=== PATIENT | male | born 1955 | race Caucasian/White ===

== ENCOUNTER 2022-06-18 08:26 | Inpatient (IN) | payer MEDICARE, SELFPAY ==
[2022-06-18] VITALS (56 sets, daily range): BP systolic 38–129; BP diastolic 27–89; PULSE 29–123; RESP 15–34; TEMP 36.2–37.4; O2SAT 78–100; BMI 24.3
--- NOTE | ~2022-06-18 | CT_ITS ---
EXAMINATION: CT abdomen pelvis wo con DATE: 06/19/2022 08:57 INDICATION: Hematuria. Acute kidney injury. TECHNIQUE: Computed tomography (CT) of the abdomen and pelvis was performed without intravenous contr ast. Automated exposure control and iterative reconstruction technique were employed. The dose-length product was 515.44 mGy-cm. COMPARISON: Kidney ultrasound 06/18/2022 FINDINGS: The visualized portions of the lung bases demonstrate mild atelectasis. No pleural effusion . The heart size is normal. There are coronary artery calcifications. No pericardial effusion. There is diffuse hepatic steatosis. The gallbladder, spleen, pancreas, adrenal glands, and kidneys are norm al. There is no urolithiasis. There is urothelial thickening in the renal pelvises bilaterally. There is mild distal bilateral hydroureter. The bladder is decompressed by a Wilhelm catheter. There is diff use bladder wall thickening, consistent with cystitis. There is liquid stool in the colon suggestive of diarrhea. There are no dilated loops of bowel. The appendix is not visualized. There is an umbilic al hernia containing fat. There are no pathologically enlarged lymph nodes. There is no free intraper itoneal fluid. There is a right groin central venous catheter with tip in right common iliac vein. Th ere is a 7 mm sclerotic lesion in right ischium, likely a benign bone island. IMPRESSION: 1. Cystitis and bilateral pyelitis. 2. Mild bilateral distal hydroureter. Reviewed, dictated and finalized at location A. T OF WAY MANAGER
--- NOTE | ~2022-06-18 | US_ITS ---
EXAMINATION: US renal BI DATE: 06/18/2022 16:01 INDICATION: Acute kidney injury TECHNIQUE: Multiple grayscale and Doppler ultrasound images of the kidneys were obtained. COMPARISON: None. FINDINGS: The right kidney measures 11 x 5.3 x 4.9 cm. The left kidney measures 12 x 4.1 x 5.2 cm. Th e kidneys demonstrate normal parenchymal echogenicity. There is mild to moderate hydroureteronephrosi s on the right. The bladder is decompressed by Wilhelm catheter. IMPRESSION: 1. Mild to moderate right hydroureteronephrosis. Reviewed, dictated and finalized at location F. CTOR OF MANAGED SERVICES
--- NOTE | ~2022-06-18 | XR_ITS ---
XR chest 1V portable DATE: 06/18/2022 10:47 INDICATION: Syncope. Weakness. TECHNIQUE: 2 portable semiupright AP views on 06/18/2022 at 1038 hours COMPARISON: None FINDINGS: Normal heart size. No hilar or mediastinal enlargement. No pulmonary infiltrate or consolid ation, pleural effusion or pulmonary vascular congestion or pneumothorax. Diffuse idiopathic skeletal hyperostosis of the thoracic spine. IMPRESSION: No active cardiopulmonary disease Diffuse idiopathic skeletal hyperostosis of the thoracic spine Reviewed, dictated and finalized at location B. MAKER
--- NOTE | 2022-06-18 08:33 | ECG_ITS ---
Measurements Intervals [place] Rate: 107 P: 32 MA: 119 QRS: 57 QRSD: 78 T: 53 QT: 300 QTc: 401 Interpretive Statements SINUS TACHYCARDIA WITH SHORT MA INTERVAL ABNORMAL ECG NO PREVIOUS ECG AVAILABLE FOR COMPARISON Electronically Signed On 06-18-2022 9:13:19 WELL REACTIVATOR OPERATOR by Ted Schaffer D.O.
[2022-06-18 09:00] LABS: Basophils Absolute Auto 0.1 K/mm3 (0.0-0.1); Basophils Percent Auto 0.5 % (0.2-1.2); Eosinophils Percent Auto 0.2 % (0-4.4); Hematocrit 33.9 % (42.0-52.0); Hemoglobin 11.1 g/dL (14.0-18.0); Immature Granulocyte Absolute 0.08 K/mm3 (0.00-0.031); Immature Granulocyte Percent A 0.5 % (0-0.5); Lymphocytes Absolute Auto 1.83 K/mm3 (0.9-3.2); Lymphocytes Percent Auto 11.4 % (18.3-44.2); Mean Corpuscular HGB Conc 32.7 g/dl (32-36); Mean Corpuscular Hemoglobin 33.5 pg (26-34); Mean Corpuscular Volume 102.4 fl (80-100); Mean Platelet Volume 9.1 fl (7.4-10.4); Monocytes Absolute Auto 1.9 K/mm3 (0.1-0.6); Monocytes Percent Auto 11.9 % (2.6-8.5); Neutrophils Absolute Auto 12.1 K/mm3 (1.3-6.7); Neutrophils Percent Auto 75.5 % (45.5-73.1); Platelet Count Result 404 k/mm3 (150-375); Red Blood Count 3.31 M/mm3 (4.6-6.20); Red Cell Distribution Width 13.2 % (11.5-14.5)
--- NOTE | 2022-06-18 09:12 | ED.GENADULT ---
HPI - General Adult General Chief complaint: Weakness Stated complaint: weaknes, fall, syncope, hematuria Time Seen by Provider: 06/18/22 09:11 Source: patient and family Mode of arrival: ambulatory Limitations: no limitations History of Present Illness HPI narrative: 67 years old white male came to the emergency room from home with his sister who drove him complaining of passing out for the last 2 days. Mainly when he gets up and try to walk. He denies any fever, chills, nausea, vomiting, chest pain, shortness of breath, back pain or injury. History of hypertension, hyperlipidemia, does not smoke, drink occasionally, DNR. Patient reported having similar symptoms 5 to 6 months ago, resolved without seeing a doctor at that time. Last blood work-up was over 1 year ago, patient reports massive diarrhea all night long Related Data Allergies Allergy/AdvReac Type Severity Reaction Status Date / Time No Known Allergies Allergy Verified 06/18/22 10:48 Review of Systems Review of Systems: All systems reviewed & are unremarkable except as noted in HPI and below Course Reevaluation(s) Reevaluation #1: Straight catheter, urine output is around 1300 cc, bloody urine. Date: 06/18/22 Time: 12:25 Consultations Consultation #1: DR PUCKETT Date: 06/18/22 Time: 12:21 Consultation #2: DR RAYMUNDO Date: 06/18/22 Time: 12:22 Consultation #3: DR VALERO Date: 06/18/22 Time: 12:22 Vital Signs Vital signs: Vital Signs Temperature 36.2 C L 06/18/22 08:47 Pulse Rate 29 L 06/18/22 08:47 Respiratory Rate 23 H 06/18/22 08:47 Blood Pressure 115/70 06/18/22 08:47 Pulse Oximetry 100 06/18/22 08:47 Oxygen Delivery Nasal Cannula 06/18/22 08:47 Oxygen Flow Rate 4 06/18/22 08:47 Temperature 36.2 C L 06/18/22 08:47 Pulse Rate 29 L 06/18/22 08:47 Respiratory Rate 23 H 06/18/22 08:47 Blood Pressure 115/70 06/18/22 08:47 Pulse Oximetry 100 06/18/22 08:47 Oxygen Delivery Nasal Cannula 06/18/22 08:47 Oxygen Flow Rate 4 06/18/22 08:47 Procedures Central Line Placement Right Femoral: Central Line Date: 06/18/22 Central Line Time: 12:23 Discussed w/ the patient/family/POA,the placement of a central venous catheter, including its clinical necessity/indication & associated potential risks, benifits and alternatives.: Yes The patient/family/POA understand(s) and acknowledge(s) the need to proceed with central venous catheter insertion as an important element of the patient's clinical management.: Yes Time Out Performed: Yes (15) Max. Sterile Barrier Technique: Caps, large sterile sheet and hand hygiene Central Line Prep: 2% chlorhexidine scrub and sterile drapes applied Technique: sterile prep/drape Ultrasound Used for Placement: No Central Line Lumen Inserted: triple Post Procedure: sutured in place, good blood return and all ports aspirated, flushed, capped Patient Tolerated Procedure: well Complications: none Medical Decision Making Vital Signs Vital Signs: Vital Signs Temperature 36.2 C L 06/18/22 08:47 Pulse Rate 29 L 06/18/22 08:47 Respiratory Rate 23 H 06/18/22 08:47 Blood Pressure 115/70 06/18/22 08:47 Pulse Oximetry 100 06/18/22 08:47 Oxygen Delivery Nasal Cannula 06/18/22 08:47 Oxygen Flow Rate 4 06/18/22 08:47 Temperature 36.2 C L 06/18/22 08:47 Pulse Rate 29 L 06/18/22 08:47 Respiratory Rate 23 H 06/18/22 08:47 Blood Pressure 115/70 06/18/22 08:47 Pulse Oximetry 100 06/18/22 08:47 Oxygen Delivery Nasal Cannula 06/18/22 08:47 Oxygen Flow Rate 4 06/18/22 08:47 Lab Data Result diagrams: 06/18/22 08:49 06/18/22 08:49 Labs: Lab Results 06/18/22 06/18/22 Range/Units 08:49 08:49 WBC 16.0 H (4.5-10.0) K/mm3 RBC 3.31 L (4.6-6.20) M/mm3 Hgb 11.1 L (14.0-18.0) g/dL Hct 33.9 L (42.0-52.0) % MCV 102.4 H (80-100) fl
[2022-06-18 09:25] LABS: Albumin Level 4.3 g/dL (3.5-5.1); Alkaline Phosphatase 78 U/L (38-126); Anion Gap 26 mmol/L (8-16); Aspartate Amino Transferase 48 U/L (17-59); Bilirubin,Total 0.6 mg/dL (0.2-1.3); Blood Urea Nitrogen 107 mg/dL (9-20); Calcium 9.6 mg/dL (8.4-10.2); Carbon Dioxide 13 mmol/L (22-30); Chloride 92 mmol/L (98-107); Estimated Glomerular Filt Rate 8; Glucose 205 mg/dL (65-110); Potassium 4.9 mmol/L (3.4-5.0); Sodium 131 mmol/L (137-145)
[2022-06-18 09:29] LABS: Alanine Aminotransferase 33 U/L (6-50)
--- NOTE | 2022-06-18 09:46 | PCRCNOTE ---
UNABLE TO OBTAIN ABG, DR. SUTTON ALSO ATTEMPTED. ABG CANCELLED PER DR. SUTTON.
--- NOTE | 2022-06-18 09:53 | PC.NURSE ---
PT infusing/hydrating. JULIANAI Lab collecting blood cultures.
[2022-06-18] MEDS: SODIUM CHLORIDE 0.9% IV 1,000 ML 999 ML (10:49)
[2022-06-18] MEDS: LACTATED RINGERS 2,200 ML/1,000 ML BAG 999 ML IV CONT (10:52)
[2022-06-18 11:57] LABS: Bacteria Urine 4+ /hpf; Mucus Urine Heavy /lpf; RBC Urine >75 /hpf (0-2); WBC Clumps Urine Present /HPF; WBC Urine >75 /hpf
[2022-06-18 11:59] LABS: Appearance Urine Turbid (Clear); Color Urine Dark Brown (Yellow)
[2022-06-18 12:00] LABS: Add Urine Microscopic? YES
[2022-06-18 12:21] LABS: Influenza A QL RT-PCR Negative (Negative); Influenza B QL RT-PCR Negative (Negative); SARS-CoV-2 RNA PCR Negative
[2022-06-18] MEDS: NOREPINEPHRINE 8 MG/D5W 250 ML 8 MG/250 ML BAG 9.38 MG IV CONT ×2 (12:46→15:00)
[2022-06-18] MEDS: SODIUM CHLORIDE 0.9% IV 1,000 ML 150 ML IV CONT (12:47)
[2022-06-18 13:22] LABS: INR 1.2; Prothrombin Time 14.8 Seconds (11.1-14.7)
[2022-06-18 13:23] LABS: Partial Thromboplastin Time 24.8 SECONDS (22.3-36.8)
[2022-06-18 13:25] LABS: Lactic Acid Reflex 1.2 mmol/L (0.7-2.0)
[2022-06-18 13:27] LABS: CRP 4.4 mg/dL (<1.0)
--- NOTE | 2022-06-18 14:04 | PM.IMHP ---
H&P: HPI History of Present Illness Date/Time: 06/18/22 14:04 Chief Complaint: Weakness Narrative: This is a 67-year-old male patient who came to the hospital who was driven to the emergency room from home. His sister has accompanied him. The patient was complaining of passing out over the last 2 days. The patient has the majority of the symptoms when he tried to get up and walk. He denies any fever chills or any nausea vomiting chest pain or shortness of breath. The patient stated that he is not taking any medication has a history of hypertension and hyperlipidemia and is no longer taking his medications. The patient stated he had similar symptoms 5-6 months ago. He has not seen a doctor for this and the symptoms resolved on lower at this time. The patient had massive diarrhea all night long. His white count is noted to be 16.0. H&H is 11.1 and 33.9. Sodium is noted to be 131. Bicarb is 13 anion gap 26. Creatinine 7.0 GFR is 8. Glucose is 205. Lactic is only 1.2. Total creatinine kinase is 496. C reactive protein is 4.4. His urine is bright red. Stool for occult blood is positive. The patient is negative for C diff he is negative for influenza A/B and COVID. Renal ultrasound was read as mild to moderate right hydroureteronephrosis. The patient was given 2 L of normal saline and 1 L of lactic Ringer's. Patient's blood pressure remained low even with the IV fluids. A central line was started in the emergency room and the patient was started on Levophed. The senior technical trainer was notified and agreed to accept the patient into ICU and will be the consult. Nephrology has been consulted. The patient was started on Rocephin in the emergency room and Levaquin. He had also been given a dose of Zosyn. The patient was started on vancomycin. The patient was also started on a bicarb drip. The patient is being admitted to inpatient ICU on the date of service of 06/18/2022. Review of Systems Review of Systems: See HPI All systems reviewed & are unremarkable except as noted in HPI and below Constitutional: Constitutional: Reports as per HPI and Reports no additional constitutional complaints Eyes: Eyes: Reports as per HPI and Reports no additional eye complaints ENT: Reports system reviewed and no additional complaints, except as documented and Reports Normal hearing present Cardiovascular: Cardiovascular: Reports no additional cardiovascular complaints Respiratory: Respiratory: Reports no additional respiratory complaints and Reports no additional respiratory complaints Gastrointestinal: Gastrointestinal: Reports as per HPI and Reports no additional gastrointestinal complaints Musculoskeletal: Musculoskeletal: Reports no additional musculoskeletal complaints Integumentary/Breasts: Skin/Breast: Reports system reviewed and no additional complaints, except as docu and Reports as per HPI Neurologic: Reports system reviewed and no additional complaints, except as documented, Reports as per HPI and Reports Normal hearing present Psychiatric: Psychiatric: Reports no additional psychiatric complaints and Reports as per HPI Endocrine: Endocrine: Reports no additional endocrine complaints Hematologic/Lymphatic: Hematologic/Lymphatic: Reports no additional hematologic/lymphatic complaints Allergic/Immunologic: Allergic/Immunologic: Reports no additional allergic/immunologic complaints PMFSH Past Medical History Medical History Glaucoma Hyperlipidemia Hypertension Surgical History Surgical History S/P appendectomy Family History Family History Mother Cancer Father Cerebrovascular accident Dementia Social History Social History (Updated 06/18/22 @ 17:06 by Lilly Yoder NP) Social History: He lives alone and has 2 children. He is . His sister is the
--- NOTE | 2022-06-18 14:26 | ADMGEN ---
This patient, Wale Quinn, was admitted to Intensive Care Unit-9. Patient/family oriented to hospital policies and general routines including ID bracelet, bed and alarms, visiting hours, pain management, procedures, bathroom and other care routines, personal items, smoking policy, room service/diet, and visiting hours. Information on how to activate the Rapid Response Team has been discussed. Patient/Family are encouraged to report perceived risks to care and to ask questions if they do not understand what they are told or what they should do.
--- NOTE | 2022-06-18 14:31 | WPDCNINT ---
Assessment and Plan Assessment and plan (1) Shock: Code(s): R57.9 - Shock, unspecified Status: Acute Assessment and Plan: Patient presented with hypotension, falls, syncope, severe diarrhea with 12-14 episodes overnight with watery diarrhea -in the ED patient's systolic blood pressures were in the 50s, he was given 5 L IV fluid bolus -likely septic shock versus hypovolemic shock, likely related to UTI, severe diarrhea -central line was placed in the right femoral vein on 06/18/2022 -patient started on Levophed, will maintain MAP > 65 mm Hg or SBP > 100 mmHg. -patient was started on Zosyn, vancomycin Levaquin, -will stop Zosyn, added Flagyl and ceftriaxone, continue Levaquin for now -stool C diff is pending -stool ova parasite has been ordered -will order stool culture (2) Acute kidney injury: Code(s): N17.9 - Acute kidney failure, unspecified Status: Acute Assessment and Plan: Patient with acute kidney injury, creatinine of 7.0 BUN of 107 -likely related to severe diarrhea, hypovolemia -patient with metabolic acidosis -received adequate IV fluids -lactic acid was 1.2, this was probably drawn after patient was given IV fluids -hematuria in the Wilhelm catheter -will start patient on bicarb infusion -renal ultrasound has been ordered -will check urine lytes, CK level, urine eosinophil -continue to monitor urine output, renal function electrolytes -maintain adequate end organ perfusion with Levophed (3) Diarrhea: Code(s): R19.7 - Diarrhea, unspecified Status: Acute Assessment and Plan: Diarrhea has resolved according the patient -stool for C diff is pending -stool for ova and parasites have been ordered -stool culture was ordered (4) Urinary tract infection: Code(s): N39.0 - Urinary tract infection, site not specified Status: Acute Assessment and Plan: UA revealed UTI, continue antibiotics as above (5) Glaucoma: Code(s): H40.9 - Unspecified glaucoma Status: Acute Assessment and Plan: History of glaucoma Plan DVT prophylaxis: SCDs as patient has hematuria, will hold any DVT chemoprophylaxis Stress ulcer prophylaxis: Not applicable Nutrition: Full liquid diet Code Status: DNR Critical Care Time Spent: 45 minutes Due to a high probability of clinically significant, life threatening deterioration, the patient required my highest level of preparedness to intervene emergently and I personally spent this critical care time directly and personally managing the patient. This critical care time included obtaining a history; examining the patient; pulse oximetry; ordering and review of studies; arranging urgent treatment with development of a management plan; evaluation of patient's response to treatment; frequent reassessment; and discussions with other providers. It was exclusive of separately billable procedures and treating other patients and teaching time. Please see Assessment and Plan section and the rest of the note for further information on patient assessment and treatment Materials Handler Consult Note Consult date: 06/18/22 Reason for consult: Hypovolemic shock, diarrhea, acute kidney injury HPI: Wale Quinn is a 67 year old male with past medical history of hypertension, hyperlipidemia on no medications at home at this time presented the ED on 06/18/2022 with complains of weakness, falls, syncope, hematuria, severe diarrhea. Patient states he has been having diarrhea on and off but overnight he had 12-14 episodes with watery diarrhea. He has had these episodes in the past but they resolve in 1 day. He has been having multiple falls in the last 2-3 days but has not hit his head, he fell and had his knee and elbow. Patient has quit smoking long time ago, drinks occasionally, denies any illicit drug use. In the ED patient was found to be hypotensive upon arrival with systolics in the 50s, patient was given a total of 5 L IV fluid bolu
[2022-06-18] MEDS: levoFLOXacin 500 MG/D5W 100 ML 500 MG/100 ML BAG 66.67 MG IVPB (14:47)
[2022-06-18 15:05] LABS: IFOB Positive Control Positive; Immunochemical Fecal Occult Bl Positive (N)
[2022-06-18] MEDS: SODIUM BICARBONATE 8.4% 50 MEQ/50 ML SYRINGE 100 MEQ IV PUSH (15:05)
[2022-06-18 15:13] LABS: Creatine Kinase 496 U/L (55-170)
[2022-06-18 15:23] LABS: Bacteria Urine 1+ /hpf; RBC Urine >75 /hpf (0-2); Squamous Epithelial Cell Urine Few /hpf (Few); WBC Urine >75 /hpf (0-3)
[2022-06-18 15:26] LABS: Add Urine Microscopic? YES; Appearance Urine Cloudy (Clear); Bilirubin Urine 1+ (Negative); Blood Urine 3+ (Negative); Color Urine Red (Yellow); Glucose Urine UA Trace mg/dL (Negative); Ketones Urine Trace mg/dL (Negative); Leukocyte Esterase Ur 3+ LEU/UL (NEGATIVE); Nitrate Urine Negative (Negative); Protein Urine 3+ mg/dL (Negative); Specific Grav Ur 1.015 (1.001-1.035); Urobilinogen Urine 0.2 mg/dL (<2.0); pH Urine 5.5 (5.0-9.0)
[2022-06-18 15:30] LABS: Toxigenic C. Diff NEGATIVE (NEGATIVE)
[2022-06-18 15:34] LABS: Eosinophil Urine None Seen % (None Seen)
[2022-06-18 15:48] LABS: Creatinine Urine 53.4 mg/dL; Potassium Urine Random 25.8 meq/L; Sodium Urine Random 76 meq/L
[2022-06-18] MEDS: SODIUM BICARBONATE 8.4% 150 MEQ in WATER, STERILE FOR INJECTION 950 ML 100 MEQ IV CONT (15:57)
[2022-06-18] MEDS: metroNIDAZOLE 500 MG/ISO 100ML 500 MG/100 ML BAG 100 MG IVPB ×2 (16:03→21:49)
[2022-06-18 18:32] LABS: Hematocrit 26.7 % (42.0-52.0); Hemoglobin 9.1 g/dL (14.0-18.0)
[2022-06-18 18:42] LABS: Creatine Kinase 434 U/L (55-170)
[2022-06-18 19:23] LABS: HIV 1/2 Ab P24 Ag Result Negative (Negative)
[2022-06-18 19:38] LABS: Hepatitis B Surface Antigen Negative (Negative)
[2022-06-18 19:43] LABS: Hepatitis B Core IgM Result Negative (Negative)
[2022-06-18 19:56] LABS: Hepatitis B Surface Anti Res Negative; Hepatitis C Virus Antibody Negative (Negative)
[2022-06-18 21:09] LABS: Alanine Aminotransferase 18 U/L (6-50); Albumin Level 3.1 g/dL (3.5-5.1); Alkaline Phosphatase 61 U/L (38-126); Anion Gap 12 mmol/L (8-16); Aspartate Amino Transferase 45 U/L (17-59); Bilirubin,Total 0.6 mg/dL (0.2-1.3); Blood Urea Nitrogen 78 mg/dL (9-20); Calcium 7.8 mg/dL (8.4-10.2); Carbon Dioxide 21 mmol/L (22-30); Chloride 98 mmol/L (98-107); Estimated CRCL calculation 19 ml/min; Estimated Glomerular Filt Rate 19; Glucose 131 mg/dL (65-110); Potassium 3.5 mmol/L (3.4-5.0); Sodium 131 mmol/L (137-145)
[2022-06-18] MEDS: CENTRAL LINE FLUSH 10 ML IV PUSH (21:50)
[2022-06-19] VITALS (21 sets, daily range): BP systolic 91–109; BP diastolic 59–81; PULSE 75–115; RESP 17–26; TEMP 36.6–37.4; O2SAT 93–100
[2022-06-19] MEDS: NOREPINEPHRINE 8 MG/D5W 250 ML 8 MG/250 ML BAG 31.88 MG IV CONT (00:31)
[2022-06-19] MEDS: SODIUM BICARBONATE 8.4% 150 MEQ in WATER, STERILE FOR INJECTION 950 ML 100 MEQ IV CONT (04:51)
[2022-06-19 05:38] LABS: Basophils Absolute Auto 0.1 K/mm3 (0.0-0.1); Basophils Percent Auto 0.7 % (0.2-1.2); Eosinophils Absolute Auto 0.1 K/mm3 (0-0.3); Eosinophils Percent Auto 1.1 % (0-4.4); Hemoglobin 9.4 g/dL (14.0-18.0); Immature Granulocyte Absolute 0.07 K/mm3 (0.00-0.031); Immature Granulocyte Percent A 0.6 % (0-0.5); Lymphocytes Absolute Auto 1.47 K/mm3 (0.9-3.2); Lymphocytes Percent Auto 12.1 % (18.3-44.2); Mean Corpuscular HGB Conc 33.6 g/dl (32-36); Mean Corpuscular Hemoglobin 34.1 pg (26-34); Mean Corpuscular Volume 101.4 fl (80-100); Mean Platelet Volume 8.9 fl (7.4-10.4); Monocytes Absolute Auto 1.4 K/mm3 (0.1-0.6); Monocytes Percent Auto 11.2 % (2.6-8.5); Neutrophils Percent Auto 74.3 % (45.5-73.1); Platelet Count Result 313 k/mm3 (150-375); Red Blood Count 2.76 M/mm3 (4.6-6.20); Red Cell Distribution Width 13.2 % (11.5-14.5); White Blood Count 12.1 K/mm3 (4.5-10.0)
[2022-06-19] MEDS: CENTRAL LINE FLUSH 10 ML IV PUSH ×3 (05:56→21:16)
[2022-06-19] MEDS: metroNIDAZOLE 500 MG/ISO 100ML 500 MG/100 ML BAG 100 MG IVPB ×3 (05:56→21:31)
[2022-06-19 06:13] LABS: Lactic Acid Reflex 0.9 mmol/L (0.7-2.0)
[2022-06-19] MEDS: NOREPINEPHRINE 8 MG/D5W 250 ML 8 MG/250 ML BAG 26.25 MG IV CONT ×2 (07:49→17:30)
[2022-06-19 08:14] LABS: Alanine Aminotransferase 17 U/L (6-50); Albumin Level 3.2 g/dL (3.5-5.1); Alkaline Phosphatase 80 U/L (38-126); Anion Gap 12 mmol/L (8-16); Aspartate Amino Transferase 33 U/L (17-59); Bilirubin,Total 0.6 mg/dL (0.2-1.3); Blood Urea Nitrogen 60 mg/dL (9-20); CRP 13.9 mg/dL (<1.0); Carbon Dioxide 26 mmol/L (22-30); Chloride 96 mmol/L (98-107); Creatine Kinase 246 U/L (55-170); Estimated CRCL calculation 26 ml/min; Estimated Glomerular Filt Rate 27; Glucose 143 mg/dL (65-110); Magnesium 2.1 mg/dL (1.6-2.3); Phosphorus 3.5 mg/dL (2.5-4.5); Potassium 3.2 mmol/L (3.4-5.0); Sodium 134 mmol/L (137-145)
--- NOTE | 2022-06-19 09:55 | WPDINTPN ---
Progress Note: A&P Assessment and Plan (1) Shock: Code(s): R57.9 - Shock, unspecified Status: Acute Assessment and Plan: Patient presented with hypotension, falls, syncope, severe diarrhea with 12-14 episodes overnight with watery diarrhea -in the ED patient's systolic blood pressures were in the 50s, he was given 5 L IV fluid bolus -likely septic shock versus hypovolemic shock, likely related to UTI, severe diarrhea -central line was placed in the right femoral vein on 06/18/2022 -patient started on Levophed, will maintain MAP > 65 mm Hg or SBP > 100 mmHg. -continue ceftriaxone, vancomycin and Flagyl (06/18), -will discontinue vancomycin once blood cultures are resulted -stool C diff is negative -stool ova parasite has been ordered and pending -stool culture ordered and pending (2) Acute kidney injury: Code(s): N17.9 - Acute kidney failure, unspecified Status: Acute Assessment and Plan: Patient with acute kidney injury, creatinine of 7.0 BUN of 107 -likely related to severe diarrhea, hypovolemia -patient with metabolic acidosis -received adequate IV fluids -lactic acid 0.9 this morning, -hematuria in the Wilhelm catheter -will discontinue bicarb infusion and start LR -06/18/2022: Renal ultrasound showed [id number] right hydronephrosis -urine lytes did not show prerenal picture, CK level mildly elevated, urine eosinophils are negative -continue to monitor urine output, renal function electrolytes -maintain adequate end organ perfusion with Levophed (3) Diarrhea: Code(s): R19.7 - Diarrhea, unspecified Status: Acute Assessment and Plan: Continue to have diarrhea yesterday, overnight it has slowed down -stool for C diff negative -stool for ova and parasites have been ordered -stool culture was ordered (4) Urinary tract infection: Code(s): N39.0 - Urinary tract infection, site not specified Status: Acute Assessment and Plan: UA revealed UTI, continue antibiotics as above (5) Glaucoma: Code(s): H40.9 - Unspecified glaucoma Status: Acute Assessment and Plan: History of glaucoma (6) Hydronephrosis, right: Code(s): N13.30 - Unspecified hydronephrosis Status: Acute Assessment and Plan: Patient presented with hematuria, Renal ultrasound showed right mild hydronephrosis -appreciate urology evaluation, recommended CT scan of the abdomen -CT scan of the abdomen pelvis showed Cystitis and bilateral pyelitis.2. Mild bilateral distal hydroureter -no plan for intervention today Plan DVT prophylaxis: SCDs as patient has hematuria, will hold any DVT chemoprophylaxis Stress ulcer prophylaxis: Not applicable Nutrition: Full liquid diet Discussed with Urology Code Status: DNR Critical Care Time Spent: 38 minutes Due to a high probability of clinically significant, life threatening deterioration, the patient required my highest level of preparedness to intervene emergently and I personally spent this critical care time directly and personally managing the patient. This critical care time included obtaining a history; examining the patient; pulse oximetry; ordering and review of studies; arranging urgent treatment with development of a management plan; evaluation of patient's response to treatment; frequent reassessment; and discussions with other providers. It was exclusive of separately billable procedures and treating other patients and teaching time. Please see Assessment and Plan section and the rest of the note for further information on patient assessment and treatment Subjective Date/time seen: 06/19/22 09:55 Interval history: Reason for consult: Septic/hypovolemic shock, severe diarrhea, acute kidney injury, UTI 06/19/2022: Patient seen and examined in the ICU, is awake, alert, oriented x3. In no acute distress. Patient states he feels much better, yesterday in the afternoon he had 5-6 episodes of stefania
--- NOTE | 2022-06-19 10:04 | WPDURCON ---
Assessment and Plan Assessment and plan (1) Acute kidney injury: Code(s): N17.9 - Acute kidney failure, unspecified Status: Acute (2) Urinary tract infection: Code(s): N39.0 - Urinary tract infection, site not specified Status: Acute (3) Hydronephrosis, right: Code(s): N13.30 - Unspecified hydronephrosis Status: Acute Assessment and Plan: Right hydronephrosis identified on renal u/s had improved on f/u CT-abd/pelvis this morning. Clinical picture, urologically, c/w ascending right pyelonephritis -> inflammation of bladder and right ureteral grace likely explains the hydronephrosis. Hematinuria also likely d/t hemorrhagic cystitis. Given improved overall clinical picture (improving creat., serum WBC, etc) will not plan ureteral stent placement. Continue Levaquin pending culture results. Formal hematuria evaluation in future only if blood and/or hydronephrosis persist after treatment of probable infection. Urology Consult Note HPI Date Seen: 06/19/22 Requesting Physician: Michael Florence MD Primary Care Provider: PHYSICIAN NOT ON STAFF Consult Narrative Narrative: Wale Quinn is a 67 year old male, previously known known to our practice and without prior significant urological history, admitted to the ICU with episodes of syncope, hypotension following protracted course of severe diarrhea with subsequent dehydration. During initial evaluation was also found to have acute kidney injury with a serum creatinine of 7. Initial evaluation with a renal ultrasound showed right hydronephrosis uncertain etiology. Patient serum blood cell count creatinine have improved with supportive care. Patient denies a history of significant voiding difficulty, recurrent urinary tract infection or urolithiasis. He denies flank pain. Review of Systems Cardiovascular: Cardiovascular: Denies chest pain, Denies lightheadedness, Denies palpitations and Denies dyspnea Respiratory: Respiratory: Denies dyspnea Gastrointestinal: Gastrointestinal: Denies diarrhea, Denies nausea and Denies vomiting Genitourinary: Genitourinary: Denies hematuria and Denies dysuria Endocrine: Endocrine: Denies palpitations PMFSH Past Medical History Medical History Glaucoma Hyperlipidemia Hypertension Surgical History Surgical History S/P appendectomy Family History Family History Mother Cancer Father Cerebrovascular accident Dementia Social History Social History (Updated 06/18/22 @ 17:06 by Lilly Yoder NP) Social History: He lives alone and has 2 children. He is . His sister is the durable power attorney law clerk for healthcare. The patient is retired from [email or web address]. He is a former smoker. He denies any alcohol marijuana or illicit drugs. Code status DNR Smoking status: Former smoker Alcohol intake: never Substance use: former Lack of Transportation: No Lack of Food: Never True Current Housing: Decline to Answer Concerned About Future Housing: Decline to Answer Difficulty Paying Gas/Electric Bills: Decline to Answer Difficulty Paying for Meds: Decline to Answer Currently Unemployed: Decline to Answer Education: High School Diploma/GED Difficulty w/ Childcare or Family Care: Decline to Answer Spiritual care concerns: No Meds Home Medications and Allergies Home Medications Medication Instructions Recorded Confirmed Type No Home Medications 06/18/22 06/18/22 History Allergies Allergy/AdvReac Type Severity Reaction Status Date / Time No Known Allergies Allergy Verified 06/18/22 10:48 Vital Signs Vital Signs - 24 hr 06/18/22 12:45 06/18/22 12:46 06/18/22 10:15 Temperature Pulse Rate 120 H 120 H 109 H Respiratory Rate 20 24 H Blood Pressure 86/71 L
[2022-06-19] MEDS: LACTATED RINGERS 1,000 ML 100 ML IV CONT ×2 (11:01→21:13)
[2022-06-19] MEDS: cefTRIAXone 2 GM in SODIUM CHLORIDE 0.9% IV 100 ML 200 ML IVPB (11:02)
[2022-06-19 11:32] LABS: Hematocrit 26.6 % (42.0-52.0); Hemoglobin 9.1 g/dL (14.0-18.0)
--- NOTE | 2022-06-19 12:27 | PM.CNNEP ---
Assessment and Plan Assessment and plan (1) Acute kidney injury: Code(s): N17.9 - Acute kidney failure, unspecified Status: Acute Assessment and Plan: suspect secondary to severe volume depletion/hypovolemia from diarrhea however, cannot discount acute infection complicated by metabolic acidosis as well initially fluid responsive but now on pressor therapy significant improvement in renal function with current interventions evaluation to date: renal ultrasound with mild/moderate right hydroureteronephrosis CT of Abd/Pelvis with cystitis, bilateral pyelitis and mild bilateral distal hydroureter urine electrolytes nonprerenal urine eosinophils negative CK mildly elevated (but not enough to affect kidney function) continue fluids/pressors to maintain MAP follow repeat labs and UOP . 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 diff, ova + parasites, culture) are pending on empiric antibiotics (4) Urinary tract infection: Code(s): N39.0 - Urinary tract infection, site not specified Status: Acute Assessment and Plan: admission UA highly suggestive await urine culture on antibiotics (5) Hydronephrosis, right: Code(s): N13.30 - Unspecified hydronephrosis Status: Acute Assessment and Plan: Urology consult/recommendations noted on intervention planned at this time Will continue to follow. History of Present Illness Reason for Consult Consult date: 06/19/22 Reason for consult: acute renal failure Chief Complaint Chief complaint: DIARRHEA,HYPOTENSION,DENNIS History of Present Illness Narrative: The patient is a 67-year-old male with a past medical history as outlined below who presented to [facility] Emergency room yesterday with complaints of weakness, recurrent falls, syncope, hematuria, and diarrhea. The patient reports that he has been having diarrhea on and off for last 24 hours with up to 12-14 episodes of diarrhea. He describes the diarrhea as watery in nature with no evidence of blood or mucus. Usually, he has had episodes like this in the past but they usually resolve in about 24 hours. This episode apparently has progressed further that time frame. Associated symptoms include several falls in the last 2-3 days although he denies any injury. Due to these ongoing symptoms as mentioned, he presented to the ER for further assessment. Workup and evaluation emergency room demonstrated the patient to be quite hypotensive with systolic BP is in the 50s. He was again given aggressive IV fluid resuscitation for a total of 5 L which did improve his systolic blood pressure to the 80s. He subsequently had a central line placed and was started on vasopressor therapy for optimization of his hemodynamics. Routine blood test demonstrated a CBC with a white blood cell count of 16 relative anemia and stable platelet count. His chemistry showed severe acute kidney injury/ acute renal failure with a BUN of 107 and a creatinine of 7.0 but surprisingly with no critical electrolyte abnormalities with regard to his potassium or Calcium but he did have a significant metabolic acidosis with a CO2 of 13. His urinalysis was highly suggestive of a urinary tract infection but his COVID/influenza a/influenza B testing were negative. His chest x-ray did no
--- NOTE | 2022-06-19 12:27 | P.CONNP_ITS ---
Assessment and Plan Assessment and plan (1) Acute kidney injury: Code(s): N17.9 - Acute kidney failure, unspecified Status: Acute Assessment and Plan: * suspect secondary to severe volume depletion/hypovolemia from diarrhea * however, cannot discount acute infection * complicated by metabolic acidosis as well * initially fluid responsive but now on pressor therapy * significant improvement in renal function with current interventions * evaluation to date: * renal ultrasound with mild/moderate right hydroureteronephrosis * CT of Abd/Pelvis with cystitis, bilateral pyelitis and mild bilateral distal hydroureter * urine electrolytes nonprerenal * urine eosinophils negative * CK mildly elevated (but not enough to affect kidney function) * continue fluids/pressors to maintain MAP * follow repeat labs and UOP . (2) Shock: Code(s): R57.9 - Shock, unspecified Status: Acute Assessment and Plan: * as noted by presentation of hypotension, falls, syncope along with history of severe diarrhea (12-14 episodes [employer] with watery diarrhea) * systolic BP in the 50s on admission -- up to 80s systolic s/p 5L IV fluid boluses/resuscitation * suspect hypovolemic shock due to diarrhea (although UTI maybe contributing factor) * on Levophed to maintain MAP * follow blood and urine cultures * on antibiotics (3) Diarrhea: Code(s): R19.7 - Diarrhea, unspecified Status: Acute Assessment and Plan: * clinically better per patient * stool studies (C. diff, ova + parasites, culture) are pending * on empiric antibiotics (4) Urinary tract infection: Code(s): N39.0 - Urinary tract infection, site not specified Status: Acute Assessment and Plan: * admission UA highly suggestive * await urine culture * on antibiotics (5) Hydronephrosis, right: Code(s): N13.30 - Unspecified hydronephrosis Status: Acute Assessment and Plan: * Urology consult/recommendations noted * on intervention planned at this time Will continue to follow. History of Present Illness Reason for Consult Consult date: 06/19/22 Reason for consult: acute renal failure Chief Complaint Chief complaint: DIARRHEA,HYPOTENSION,DENNIS History of Present Illness Narrative: The patient is a 67-year-old male with a past medical history as outlined below who presented to [facility] Emergency room yesterday with complaints of weakness, recurrent falls, syncope, hematuria, and diarrhea. The patient reports that he has been having diarrhea on and off for last 24 hours with up to 12-14 episodes of diarrhea. He describes the diarrhea as watery in nature with no evidence of blood or mucus. Usually, he has had episodes like this in the past but they usually resolve in about 24 hours. This episode apparently has progressed further that time frame. Associated symptoms include several falls in the last 2-3 days although he denies any injury. Due to these ongoing symptoms as mentioned, he presented to the ER for further assessment. Workup and evaluation emergency room demonstrated the patient to be quite hyp otensive with systolic BP is in the 50s. He was again given aggressive IV fluid resuscitation for a total of 5 L which did improve his systolic blood pressure to the 80s. He subsequently had a central line placed and was started on vasopressor therapy for optimization of his hemodynamics. Routine blood test demonstrated a CBC with a white blood cell count of 16 relative anemia and stable platelet count. His chemistry s
--- NOTE | 2022-06-19 16:35 | PC.NURSE ---
Report given to Faustina VILLALPANDO
[2022-06-20] VITALS (37 sets, daily range): BP systolic 75–126; BP diastolic 33–83; PULSE 70–114; RESP 13–28; TEMP 36.4–36.9; O2SAT 93–100
[2022-06-20 04:58] LABS: Estimated CRCL calculation 44 ml/min; Estimated Glomerular Filt Rate 51
[2022-06-20] MEDS: metroNIDAZOLE 500 MG/ISO 100ML 500 MG/100 ML BAG 100 MG IVPB ×3 (06:02→20:48)
[2022-06-20] MEDS: CENTRAL LINE FLUSH 10 ML IV PUSH ×3 (06:03→20:44)
[2022-06-20 06:07] LABS: Hematocrit 24.7 % (42.0-52.0); Hemoglobin 8.2 g/dL (14.0-18.0); Mean Corpuscular HGB Conc 33.2 g/dl (32-36); Mean Corpuscular Hemoglobin 32.9 pg (26-34); Mean Corpuscular Volume 99.2 fl (80-100); Mean Platelet Volume 8.4 fl (7.4-10.4); Platelet Count Result 237 k/mm3 (150-375); Red Blood Count 2.49 M/mm3 (4.6-6.20); Red Cell Distribution Width 12.7 % (11.5-14.5); White Blood Count 9.2 K/mm3 (4.5-10.0)
[2022-06-20] MEDS: NOREPINEPHRINE 8 MG/D5W 250 ML 8 MG/250 ML BAG 9.38 MG IV CONT (06:13)
[2022-06-20] MEDS: LACTATED RINGERS 1,000 ML 100 ML IV CONT ×2 (06:14→17:08)
[2022-06-20 06:19] LABS: Anion Gap 6 mmol/L (8-16); Blood Urea Nitrogen 27 mg/dL (9-20); Calcium 7.8 mg/dL (8.4-10.2); Carbon Dioxide 28 mmol/L (22-30); Chloride 99 mmol/L (98-107); Estimated CRCL calculation 47 ml/min; Estimated Glomerular Filt Rate 55; Glucose 138 mg/dL (65-110); Magnesium 1.8 mg/dL (1.6-2.3); Phosphorus 2.4 mg/dL (2.5-4.5); Potassium 3.3 mmol/L (3.4-5.0); Sodium 133 mmol/L (137-145)
[2022-06-20] MEDS: KCL 40 MEQ/WATER 100 ML 100 ML 25 ML IVPB (09:17)
--- NOTE | 2022-06-20 09:50 | WPDINTPN ---
Progress Note: A&P Assessment and Plan (1) Shock: Code(s): R57.9 - Shock, unspecified Status: Acute Assessment and Plan: Patient presented with hypotension, falls, syncope, severe diarrhea with 12-14 episodes overnight with watery diarrhea -in the ED patient's systolic blood pressures were in the 50s, he was given 5 L IV fluid bolus -likely septic shock versus hypovolemic shock, likely related to UTI, severe diarrhea -central line was placed in the right femoral vein on 06/18/2022 -patient started on Levophed, will maintain MAP > 65 mm Hg or SBP? > 100 mmHg. -08/18: Blood cultures negative x2 -08/18: Urine cultures growing E coli, pansensitive -stool C diff is negative -stool ova parasite has been ordered and pending -stool culture ordered and pending -continue ceftriaxone, Flagyl (06/18), since blood cultures are negative, will discontinue vancomycin -add midodrine (2) Acute kidney injury: Code(s): N17.9 - Acute kidney failure, unspecified Status: Acute Assessment and Plan: Patient with acute kidney injury, creatinine of 7.0 BUN of 107 -likely related to severe diarrhea, hypovolemia, UTI,, severe sepsis/shock -patient with metabolic acidosis -resolved -received adequate IV fluids -lactic acid normalized -hematuria in the Wilhelm catheter -bicarb infusion and sodium bicarb tablets were discontinued -continue maintenance fluids with LR -06/18/2022: Renal ultrasound showed [id number] right hydronephrosis -urine lytes did not show prerenal picture, CK level mildly elevated, urine eosinophils are negative -continue to monitor urine output, renal function electrolytes -maintain adequate end organ perfusion with Levophed -down to 1.3 this morning on 06/20 (3) Diarrhea: Code(s): R19.7 - Diarrhea, unspecified Status: Acute Assessment and Plan: Continue to have diarrhea yesterday, overnight it has slowed down -stool for C diff negative -stool for ova and parasites have been ordered -stool culture was ordered -continue Flagyl and ceftriaxone (4) Urinary tract infection: Code(s): N39.0 - Urinary tract infection, site not specified Status: Acute Assessment and Plan: UA revealed UTI, continue antibiotics as above -cultures positive for pansensitive E coli (5) Glaucoma: Code(s): H40.9 - Unspecified glaucoma Status: Acute Assessment and Plan: History of glaucoma (6) Hydronephrosis, right: Code(s): N13.30 - Unspecified hydronephrosis Status: Acute Assessment and Plan: Patient presented with hematuria, Renal ultrasound showed right mild hydronephrosis -appreciate urology evaluation, recommended CT scan of the abdomen -CT scan of the abdomen pelvis showed?Cystitis and bilateral pyelitis.2. Mild bilateral distal hydroureter -no plan for intervention per Urology Plan DVT prophylaxis:? SCDs as patient has hematuria, will hold any DVT chemoprophylaxis Stress ulcer prophylaxis:? Not applicable Nutrition:? Advanced to heart healthy diet Discussed with patient and updated with his condition and plan of care. Code Status: ? DNR Critical Care Time Spent:? 34 minutes ?Due to a high probability of clinically significant, life threatening deterioration, the patient required my highest level of preparedness to intervene emergently and I personally spent this critical care time directly and personally managing the patient. This critical care time included obtaining a history; examining the patient; pulse oximetry; ordering and review of studies; arranging urgent treatment with development of a management plan; evaluation of patient's response to treatment; frequent reassessment; and discussions with other providers. It was exclusive of separately billable procedures and treating other patients and teaching time. Please see Assessment and Plan section and the rest of the note for further information on patient assessment and treatment Subje
[2022-06-20] MEDS: cefTRIAXone 2 GM in SODIUM CHLORIDE 0.9% IV 100 ML 200 ML IVPB (11:14)
[2022-06-20] MEDS: MIDODRINE HCL 10 MG TABLET PO ×3 (11:15→17:08)
--- NOTE | 2022-06-20 11:15 | PM.PNNEP ---
Progress Note: A&P Assessment and Plan (1) Acute kidney injury: Code(s): N17.9 - Acute kidney failure, unspecified Status: Acute Assessment and Plan: suspect secondary to severe volume depletion/hypovolemia from diarrhea however, cannot discount acute infection complicated by metabolic acidosis as well initially fluid responsive but now on pressor therapy significant improvement in renal function with current interventions evaluation to date: renal ultrasound with mild/moderate right hydroureteronephrosis CT of Abd/Pelvis with cystitis, bilateral pyelitis and mild bilateral distal hydroureter urine electrolytes nonprerenal urine eosinophils negative CK mildly elevated (but not enough to affect kidney function) continue fluids/pressors to maintain MAP follow repeat labs and UOP . (2) Shock: Code(s): R57.9 - Shock, unspecified Status: Acute Assessment and Plan: as noted by presentation of hypotension, falls, syncope along with history of severe diarrhea (12-14 episodes [employer] with watery diarrhea) systolic BP in the 50s on admission -- up to 80s systolic s/p 5L IV fluid boluses/resuscitation suspect hypovolemic shock due to diarrhea (although UTI maybe contributing factor) on Levophed to maintain MAP follow blood and urine cultures on antibiotics (3) Diarrhea: Code(s): R19.7 - Diarrhea, unspecified Status: Acute Assessment and Plan: clinically better per patient stool studies (C. diff, ova + parasites, culture) are pending on empiric antibiotics (4) Urinary tract infection: Code(s): N39.0 - Urinary tract infection, site not specified Status: Acute Assessment and Plan: admission UA highly suggestive await urine culture on antibiotics (5) Hydronephrosis, right: Code(s): N13.30 - Unspecified hydronephrosis Status: Acute Assessment and Plan: Urology consult/recommendations noted clinical picture, urologically, consistent with ascending pyelonephritis -> inflammation of bladder and right ureteral grace likely explains the hydronephrosis; hematuria also likely d/t hemorrhagic cystitis no intervention planned at this time Will continue to follow. Subjective Date/time seen: 06/20/22 11:15 The patient appears to be doing reasonably well; he continues to have good urine output with improvement in his overall renal function/creatinine; he remains on vasopressor therapy and diarrhea seems to be slowly improving as well; no apparent distress noted and no other issues/events overnight or earlier this morning. Exam Narrative: General: WD/WN male in NAD Heart: normal S1 and S2; no rub Lungs: clear to auscultation Abdomen: soft, nontender, nondistended, positive bowel sounds Extremities: no cyanosis or clubbing; no edema Skin: warm and dry Objective Data Vital Signs Vital Signs: Vital Signs Temp Pulse Resp BP Pulse Ox O2 Del Method 06/20/22 10:00 36.4 C 101 H 27 H 100/67 99 06/20/22 10:00 76 06/20/22 08:00 Room Air 06/20/22 10:52 81 91/73 L 06/20/22 10:18 104 H 84/56 L 06/20/22 08:00 85 06/20/22 09:17 111 H 81/61 L 06/20/22 09:00 114 H 91/73 L 06/20/22 08:56 108 H 75/33 L 06/20/22 08:00 36.4 C L 95 20 95/70 L 99 06/20/22 07:40 99 91/65 L 06/20/22 06:00 86 23 H 104/71 98 06/20/22 06:00 86 06/20/22 06:13 87 104/71 06/20/22 06:02 87 104/71 06/20/22 06:01 77 104/71 06/20/22 05:18 77 108/68 06/20/22 04:00 36.8 C 87 22 H 103/65 93 06/20/22 04:00 74 06/20/22 04:00 Room Air 06/20/22 04:37 93 105/64 06/20/22 02:00 81 06/20/22 02:00 81 18 107/72 97 06/20/22 02:41 86 104/68 06/20/22 01:52 77 114/72 06/20/22 00:00 36.9 C 85 21 H 101/69 98 06/20/22 00:00 84 06/20/22 00:00 Room Air
--- NOTE | 2022-06-20 11:15 | P.PNNP_ITS ---
Progress Note: A&P Assessment and Plan (1) Acute kidney injury: Code(s): N17.9 - Acute kidney failure, unspecified Status: Acute Assessment and Plan: * suspect secondary to severe volume depletion/hypovolemia from diarrhea * however, cannot discount acute infection * complicated by metabolic acidosis as well * initially fluid responsive but now on pressor therapy * significant improvement in renal function with current interventions * evaluation to date: * renal ultrasound with mild/moderate right hydroureteronephrosis * CT of Abd/Pelvis with cystitis, bilateral pyelitis and mild bilateral distal hydroureter * urine electrolytes nonprerenal * urine eosinophils negative * CK mildly elevated (but not enough to affect kidney function) * continue fluids/pressors to maintain MAP * follow repeat labs and UOP . 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 diff, ova + parasites, culture) are pending * on empiric antibiotics (4) Urinary tract infection: Code(s): N39.0 - Urinary tract infection, site not specified Status: Acute Assessment and Plan: * admission UA highly suggestive * await urine culture * on antibiotics (5) Hydronephrosis, right: Code(s): N13.30 - Unspecified hydronephrosis Status: Acute Assessment and Plan: * Urology consult/recommendations noted * clinical picture, urologically, consistent with ascending pyelonephritis - > inflammation of bladder and right ureteral grace likely explains the hydronephrosis; hematuria also likely d/t hemorrhagic cystitis * no intervention planned at this time Will continue to follow. Subjective Date/time seen: 06/20/22 11:15 The patient appears to be doing reasonably well; he continues to have good urine output with improvement in his overall renal function/creatinine; he remains on vasopressor therapy and diarrhea seems to be slowly improving as well; no ap parent distress noted and no other issues/events overnight or earlier this morning. Exam Narrative: General: WD/WN male in NAD Heart: normal S1 and S2; no rub Lungs: clear to auscultation Abdomen: soft, nontender, nondistended, positive bowel sounds Extremities: no cyanosis or clubbing; no edema Skin: warm and dry Objective Data Vital Signs Vital Signs: Vital Signs Temp Pulse Resp BP Pulse Ox O2 Del Method 06/20/22 10:00 36.4 C 101 H 27 H 100/67 99 06/20/22 10:00 76 06/20/22 08:00 Room Air 06/20/22 10:52 81 91/73 L 06/20/22 10:18 104 H 84/56 L 06/20/22 08:00 85 06/20/22 09:17 111 H 81/61 L 06/20/22 09:00 114 H 91/73 L 06/20/22 08:56 108 H 75/33 L 06/20/22
[2022-06-20] MEDS: ALBUMIN HUMAN 25% 25 GM/100 ML 100 ML IVPB ×3 (11:51→23:55)
--- NOTE | 2022-06-20 12:33 | WPDUROPN2 ---
Progress Note: A&P Assessment and Plan (1) Acute kidney injury: Code(s): N17.9 - Acute kidney failure, unspecified Status: Acute (2) Shock: Code(s): R57.9 - Shock, unspecified Status: Acute (3) Urinary tract infection: Code(s): N39.0 - Urinary tract infection, site not specified Status: Acute Plan Clinical picture, urologically, consistent with ascending pyelonephritis -> inflammation of bladder and right ureteral grace likely explains the hydronephrosis.? hematuria also likely d/t hemorrhagic cystitis.? Given improved overall clinical picture (improving creat., serum WBC, etc) will not plan ureteral stent placement.? urine culture growing E coli.Continue Antibiotics for 14 day course.? Formal hematuria evaluation in future only if blood and/or hydronephrosis persist after treatment of probable infection Subjective Subjective Date/Time Seen: 06/20/22 12:33 Review of Systems Review of Systems: patient states he feels well today Exam Narrative: patient is awake alert. He is in no acute distress. His breathing is unlabored. Abdomen soft. Patient with Wilhelm catheter in place draining red/clear urine Objective Data Vital Signs Vital Signs: Vital Signs - 24 hr 06/19/22 14:00 06/19/22 14:00 06/19/22 16:00 Temperature Pulse Rate 80 80 75 Respiratory Rate 18 Blood Pressure 99/59 L Pulse Oximetry 93 Oxygen Delivery 06/19/22 16:00 06/19/22 17:30 06/19/22 16:00 Temperature 36.9 C Pulse Rate 75 98 85 Respiratory Rate 19 22 H Blood Pressure 98/66 L 104/64 Pulse Oximetry 98 97 Oxygen Delivery Room Air 06/19/22 18:00 06/19/22 18:00 06/19/22 21:15 Temperature Pulse Rate 98 98 84 Respiratory Rate 22 H Blood Pressure 99/60 L 92/65 L Pulse Oximetry 97 Oxygen Delivery 06/19/22 21:32 06/19/22 20:00 06/19/22 20:00 Temperature 37.2 C Pulse Rate 101 H 97 Respiratory Rate 20 Blood Pressure 108/81 91/65 L Pulse Oximetry 98 Oxygen Delivery Room Air 06/19/22 22:00 06/19/22 20:00 06/19/22 22:00 Temperature Pulse Rate 88 83 88 Respiratory Rate 25 H Blood Pressure 104/66 Pulse Oximetry 97 Oxygen Delivery 06/19/22 22:05 06/19/22 22:36 06/20/22 00:47 Temperature Pulse Rate 84 82 98 Respiratory Rate Blood Pressure 104/66 109/68 108/81 Pulse Oximetry Oxygen Delivery 06/20/22 00:00 06/20/22 00:00 06/20/22 00:00 Temperature 36.9 C Pulse Rate 84 85 Respiratory Rate 21 H Blood Pressure 101/69 Pulse Oximetry 98 Oxygen Delivery Room Air 06/20/22 01:52 06/20/22 02:41 06/20/22 02:00 Temperature Pulse Rate 77 86 81 Respiratory Rate 18 Blood Pressure 114/72 104/68 107/72 Pulse Oximetry 97 Oxygen Delivery 06/20/22 02:00 06/20/22 04:37 06/20/22 04:00 Temperature Pulse Rate 81 93 Respiratory Rate Blood Pressure 105/64 Pulse Oximetry Oxygen Delivery Room Air 06/20/22 04:00 06/20/22 04:00 06/20/22 05:18 Temperature 36.8 C Pulse Rate 74 87 77 Respiratory Rate 22 H Blood Pressure 103/65 108/68 Pulse Oximetry 93 Oxygen Delivery 06/20/22 06:01 06/20/22 06:02 06/20/22 06:13 Temperature Pulse Rate 77 87 87 Respiratory Rate Blood Pressure 104/71 104/71 104/71 Pulse Oximetry Oxygen Delivery 06/20/22 06:00 06/20/22 06:00 06/20/22 07:40 Temperature Pulse Rate 86 86 99 Respiratory Rate 23 H Blood Pressure 104/71 91/65 L Pulse Oximetry 98 Oxygen Delivery 06/20/22 08:00 06/20/22 08:56 06/20/22 09:00 Temperature 36.4 C L Pulse Rate 95 108 H 114 H Respiratory Rate 20 Blood Pressure 95/70 L 75/33 L 91/73 L Pulse Oximetry 99 Oxygen Delivery 06/20/22 09:17 06/20/22 08:00 06/20/22 10:18 Temperature Pulse Rate 111 H 85 104 H Respiratory Rate Blood Pressure 81/61 L 84/56 L Pulse Oximetry Oxygen Delivery 06/20/22 10:52 06/20/22 08:00 06/20/22 10:00 [facility]
--- NOTE | 2022-06-20 14:57 | PM.IMPN ---
Progress Note: A&P Assessment and Plan (1) Shock: Code(s): R57.9 - Shock, unspecified Status: Acute Assessment and Plan: Patient presented with hypotension, falls, syncope, severe diarrhea with 12-14 episodes overnight with watery diarrhea -in the ED patient's systolic blood pressures were in the 50s, he was given 5 L IV fluid bolus -likely septic shock versus hypovolemic shock, likely related to UTI, severe diarrhea -central line was placed in the right femoral vein on 06/18/2022 -patient started on Levophed, will maintain MAP > 65 mm Hg or SBP? > 100 mmHg. -06/18: Blood cultures negative x2 -06/18: Urine cultures growing E coli, pansensitive -stool C diff is negative -stool ova parasite has been ordered and pending -stool culture ordered and pending -continue ceftriaxone, Flagyl (06/18), since blood cultures are negative, will discontinue vancomycin - midodrine added, taper Levophed as tolerated (2) Acute kidney injury: Code(s): N17.9 - Acute kidney failure, unspecified Status: Acute Assessment and Plan: Patient with acute kidney injury, creatinine of 7.0 BUN of 107 -likely related to severe diarrhea, hypovolemia, UTI,, severe sepsis/shock -patient with metabolic acidosis -resolved -received adequate IV fluids -lactic acid normalized -hematuria in the Wilhelm catheter -bicarb infusion and sodium bicarb tablets were discontinued -continue maintenance fluids with LR -06/18/2022: Renal ultrasound showed [id number] right hydronephrosis -urine lytes did not show prerenal picture, CK level mildly elevated, urine eosinophils are negative -continue to monitor urine output, renal function electrolytes -maintain adequate end organ perfusion with Levophed -down to 1.3 this morning on 06/20 (3) Diarrhea: Code(s): R19.7 - Diarrhea, unspecified Status: Acute Assessment and Plan: Continue to have diarrhea yesterday, overnight it has slowed down -stool for C diff negative -stool for ova and parasites have been ordered -stool culture was ordered -continue Flagyl and ceftriaxone (4) Urinary tract infection: Code(s): N39.0 - Urinary tract infection, site not specified Status: Acute Assessment and Plan: UA revealed UTI, continue antibiotics as above -cultures positive for pansensitive E coli (5) Glaucoma: Code(s): H40.9 - Unspecified glaucoma Status: Acute Assessment and Plan: History of glaucoma (6) Hydronephrosis, right: Code(s): N13.30 - Unspecified hydronephrosis Status: Acute Assessment and Plan: Patient presented with hematuria, Renal ultrasound showed right mild hydronephrosis -appreciate urology evaluation, recommended CT scan of the abdomen -CT scan of the abdomen pelvis showed?Cystitis and bilateral pyelitis.2. Mild bilateral distal hydroureter -no plan for intervention per Urology Plan DVT prophylaxis:? SCDs as patient has hematuria, will hold any DVT chemoprophylaxis Stress ulcer prophylaxis:? Not applicable Nutrition:? Advanced to heart healthy diet Code Status: ? DNR Subjective Date/time seen: 06/20/22 14:57 Interval history: no overnight events. Remains on Levophed. Hematuria persist. Otherwise denies any new complaints. Review of Systems Review of Systems: All systems reviewed & are unremarkable except as noted in HPI and below Exam Narrative: General:? Pleasant gentleman in no acute distress HEENT:? Pupils equal and reactive, sclera is clear, moist oral mucosa Neck:? Supple, no lymphadenopathy Respiratory:? Clear to auscultation bilaterally no wheezing Cardiac:? Regular rate and rhythm S1-S2 normal Abdomen:? Soft, nondistended, nontender, normoactive bowel sounds Extremities:? No edema, palpable pedal pulses Neuro:? Patient is awake, alert, oriented x3, answers to questions appropriately and follows simple commands in all extremities Psych:? Normal affect and mentation Objective Da
[2022-06-21] VITALS (19 sets, daily range): BP systolic 84–118; BP diastolic 60–99; PULSE 63–100; RESP 20–23; TEMP 36.6–37.6; O2SAT 90–100
[2022-06-21] MEDS: LACTATED RINGERS 1,000 ML 100 ML IV CONT (03:00)
[2022-06-21 04:23] LABS: Hematocrit 22.8 % (42.0-52.0); Hemoglobin 7.4 g/dL (14.0-18.0); Mean Corpuscular HGB Conc 32.5 g/dl (32-36); Mean Corpuscular Hemoglobin 34.1 pg (26-34); Mean Corpuscular Volume 105.1 fl (80-100); Mean Platelet Volume 8.4 fl (7.4-10.4); Platelet Count Result 200 k/mm3 (150-375); Red Blood Count 2.17 M/mm3 (4.6-6.20); Red Cell Distribution Width 12.8 % (11.5-14.5); White Blood Count 7.4 K/mm3 (4.5-10.0)
[2022-06-21 04:49] LABS: Anion Gap 6 mmol/L (8-16); Blood Urea Nitrogen 18 mg/dL (9-20); Calcium 7.8 mg/dL (8.4-10.2); Carbon Dioxide 25 mmol/L (22-30); Chloride 105 mmol/L (98-107); Estimated CRCL calculation 55 ml/min; Estimated Glomerular Filt Rate > 60; Glucose 108 mg/dL (65-110); Magnesium 1.7 mg/dL (1.6-2.3); Phosphorus 2.2 mg/dL (2.5-4.5); Potassium 3.6 mmol/L (3.4-5.0); Sodium 136 mmol/L (137-145)
[2022-06-21] MEDS: ALBUMIN HUMAN 25% 25 GM/100 ML 100 ML IVPB (05:42)
[2022-06-21] MEDS: metroNIDAZOLE 500 MG/ISO 100ML 500 MG/100 ML BAG 100 MG IVPB ×3 (05:43→21:08)
[2022-06-21] MEDS: CENTRAL LINE FLUSH 10 ML IV PUSH ×3 (05:43→21:23)
--- NOTE | 2022-06-21 08:38 | WPDINTPN ---
Progress Note: A&P Assessment and Plan (1) Shock: Code(s): R57.9 - Shock, unspecified Status: Acute Assessment and Plan: Patient presented with hypotension, falls, syncope, severe diarrhea with 12-14 episodes overnight with watery diarrhea -in the ED patient's systolic blood pressures were in the 50s, he was given 5 L IV fluid bolus -likely septic shock versus hypovolemic shock, likely related to UTI, severe diarrhea -central line was placed in the right femoral vein on 06/18/2022 -patient started on Levophed, will maintain MAP > 65 mm Hg . -08/18: Blood cultures negative x2 -08/18: Urine cultures growing E coli, pansensitive -stool C diff is negative -stool ova parasite has been ordered and pending -stool culture ordered and pending -continue ceftriaxone, Flagyl (06/18), since blood cultures are negative, will discontinue vancomycin -midodrine was added on 06/20 (2) Acute kidney injury: Code(s): N17.9 - Acute kidney failure, unspecified Status: Acute Assessment and Plan: Patient with acute kidney injury, creatinine of 7.0 BUN of 107 -likely related to severe diarrhea, hypovolemia, UTI,, severe sepsis/shock -patient with metabolic acidosis -resolved -received adequate IV fluids -lactic acid normalized -hematuria in the Wilhelm catheter -bicarb infusion and sodium bicarb tablets were discontinued -continue maintenance fluids with LR -06/18/2022: Renal ultrasound showed [id number] right hydronephrosis -urine lytes did not show prerenal picture, CK level mildly elevated, urine eosinophils are negative -continue to monitor urine output, renal function electrolytes -maintain adequate end organ perfusion with Levophed -down to 1.10 this morning on 06/21 (3) Diarrhea: Code(s): R19.7 - Diarrhea, unspecified Status: Acute Assessment and Plan: Continue to have diarrhea yesterday, overnight it has slowed down -stool for C diff negative -stool for ova and parasites have been ordered -stool culture was ordered -continue Flagyl and ceftriaxone (4) Urinary tract infection: Code(s): N39.0 - Urinary tract infection, site not specified Status: Acute Assessment and Plan: UA revealed UTI, continue antibiotics as above -cultures positive for pansensitive E coli (5) Glaucoma: Code(s): H40.9 - Unspecified glaucoma Status: Acute Assessment and Plan: History of glaucoma (6) Hydronephrosis, right: Code(s): N13.30 - Unspecified hydronephrosis Status: Acute Assessment and Plan: Patient presented with hematuria, Renal ultrasound showed right mild hydronephrosis -appreciate urology evaluation, recommended CT scan of the abdomen -CT scan of the abdomen pelvis showed?Cystitis and bilateral pyelitis.2. Mild bilateral distal hydroureter -no plan for intervention per Urology (7) Anemia: Code(s): D64.9 - Anemia, unspecified Status: Acute Assessment and Plan: Could be related to hemorrhagic cystitis, -urine has cleared up, will continue to monitor -06/18/2020: Stool for Hemoccult was positive -Protonix IV q.12 hours -will monitor hemoglobin closely Plan DVT prophylaxis:? SCDs as patient has hematuria, no chemoprophylaxis this time Stress ulcer prophylaxis:? Protonix IV q.12 hours Nutrition:? Tolerating diet Discussed with patient and updated with his condition and plan of care. Code Status: ? DNR Critical Care Time Spent:? 33 minutes ?Due to a high probability of clinically significant, life threatening deterioration, the patient required my highest level of preparedness to intervene emergently and I personally spent this critical care time directly and personally managing the patient. This critical care time included obtaining a history; examining the patient; pulse oximetry; ordering and review of studies; arranging urgent treatment with development of a management plan; evaluation of patient's response to treatment;
[2022-06-21] MEDS: MIDODRINE HCL 10 MG TABLET PO ×3 (09:20→16:43)
[2022-06-21] MEDS: PANTOPRAZOLE SODIUM IV 40 MG VIAL IV PUSH ×2 (09:20→21:11)
[2022-06-21] MEDS: MAGNESIUM SULF 2 GM/WATER 50ML 2 GM/50 ML BAG IVPB (09:26)
[2022-06-21] MEDS: POTASSIUM CHLORIDE 20 MEQ PACKET (FOR LIQUID) 40 MEQ PO (09:27)
[2022-06-21] MEDS: POTASSIUM PHOS/SODIUM PHOS 250 MG TABLET PO (09:33)
[2022-06-21] MEDS: cefTRIAXone 2 GM in SODIUM CHLORIDE 0.9% IV 100 ML 200 ML IVPB (10:23)
--- NOTE | 2022-06-21 10:34 | P.PNNP_ITS ---
Progress Note: A&P Assessment and Plan (1) Acute kidney injury: Code(s): N17.9 - Acute kidney failure, unspecified Status: Acute Assessment and Plan: * suspect secondary to severe volume depletion/hypovolemia from diarrhea * however, cannot discount acute infection (UTI) * complicated by metabolic acidosis as well * initially fluid responsive but requiring pressor therapy * significant improvement in renal function with current interventions * evaluation to date: * renal ultrasound with mild/moderate right hydroureteronephrosis * CT of Abd/Pelvis with cystitis, bilateral pyelitis and mild bilateral distal hydroureter * urine electrolytes nonprerenal * urine eosinophils negative * CK mildly elevated (but not enough to affect kidney function) * continue fluids/pressors to maintain MAP * follow repeat labs and UOP . 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 diff, ova + parasites, culture) are pending * on empiric antibiotics (4) Urinary tract infection: Code(s): N39.0 - Urinary tract infection, site not specified Status: Acute Assessment and Plan: * urine culture with E. coli * on antibiotics (5) Anemia: Code(s): D64.9 - Anemia, unspecified Status: Acute Assessment and Plan: * possibly related to acute illness/DENNIS and hematuria/hemorrhagic cystitis +/- dilutional (from aggressive IVF resuscitation) * however, noted to be guaiac positive as well * on PPI * follow trend of H/H (6) Hydronephrosis, right: Code(s): N13.30 - Unspecified hydronephrosis Status: Acute Assessment and Plan: * Urology consult/recommendations noted * clinical picture, urologically, consistent with ascending pyelonephritis - > inflammation of bladder and right ureteral grace likely explains the hydronephrosis; hematuria also likely d/t hemorrhagic cystitis * no intervention planned at this time Not much else to really add -- will continue to follow from a distance Subjective Date/time seen: 06/21/22 10:34 Renal function continues to improve with current interventions with good urine output as noted; urine color more yellow (in comparison to pinkish from presumed hematuria) today; still requirng vasopressor therapy to maintain MAP; no other acute complaints voiced; no issues/evetns overnight or earlier this AM. Exam Narrative: General: WD/WN male in NAD Heart: normal S1 and S2; no rub Lungs: clear to auscultation Abdomen: soft, nontender, nondistended, positive bowel sounds Extremities: no cyanosis or clubbing; no edema Skin: warm and intact Objective Data Vital Signs Vital Signs: Vital Signs Temp Pulse Resp BP Pulse Ox O2 Del Method
--- NOTE | 2022-06-21 10:34 | PM.PNNEP ---
Progress Note: A&P Assessment and Plan (1) Acute kidney injury: Code(s): N17.9 - Acute kidney failure, unspecified Status: Acute Assessment and Plan: suspect secondary to severe volume depletion/hypovolemia from diarrhea however, cannot discount acute infection (UTI) complicated by metabolic acidosis as well initially fluid responsive but requiring pressor therapy significant improvement in renal function with current interventions evaluation to date: renal ultrasound with mild/moderate right hydroureteronephrosis CT of Abd/Pelvis with cystitis, bilateral pyelitis and mild bilateral distal hydroureter urine electrolytes nonprerenal urine eosinophils negative CK mildly elevated (but not enough to affect kidney function) continue fluids/pressors to maintain MAP follow repeat labs and UOP . 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 diff, ova + parasites, culture) are pending on empiric antibiotics (4) Urinary tract infection: Code(s): N39.0 - Urinary tract infection, site not specified Status: Acute Assessment and Plan: urine culture with E. coli on antibiotics (5) Anemia: Code(s): D64.9 - Anemia, unspecified Status: Acute Assessment and Plan: possibly related to acute illness/DENNIS and hematuria/hemorrhagic cystitis +/- dilutional (from aggressive IVF resuscitation) however, noted to be guaiac positive as well on PPI follow trend of H/H (6) Hydronephrosis, right: Code(s): N13.30 - Unspecified hydronephrosis Status: Acute Assessment and Plan: Urology consult/recommendations noted clinical picture, urologically, consistent with ascending pyelonephritis -> inflammation of bladder and right ureteral grace likely explains the hydronephrosis; hematuria also likely d/t hemorrhagic cystitis no intervention planned at this time Not much else to really add -- will continue to follow from a distance Subjective Date/time seen: 06/21/22 10:34 Renal function continues to improve with current interventions with good urine output as noted; urine color more yellow (in comparison to pinkish from presumed hematuria) today; still requirng vasopressor therapy to maintain MAP; no other acute complaints voiced; no issues/evetns overnight or earlier this AM. Exam Narrative: General: WD/WN male in NAD Heart: normal S1 and S2; no rub Lungs: clear to auscultation Abdomen: soft, nontender, nondistended, positive bowel sounds Extremities: no cyanosis or clubbing; no edema Skin: warm and intact Objective Data Vital Signs Vital Signs: Vital Signs Temp Pulse Resp BP Pulse Ox O2 Del Method 06/21/22 10:00 37.6 C 75 22 H 103/68 98 06/21/22 10:00 77 06/21/22 08:00 74 06/21/22 08:00 37.5 C 74 20 105/63 99 06/21/22 09:12 75 116/67 06/21/22 07:30 65 109/68 06/21/22 06:00 73 103/68 06/21/22 06:00 73 21 H 103/68 99 06/21/22 06:00 73 06/21/22 04:00 71 100/68 06/21/22 04:00 36.6 C 71 23 H 100/68 93 06/21/22 04:00 67 06/21/22 04:00 Room Air 06/21/22 02:00 63 23 H 89/68 L 96 06/21/22 02:00 63 06/21/22 02:07 78 89/68 L 06/21/22 00:00 36.9 C 86 20 96/61 L 97
--- NOTE | 2022-06-21 11:50 | WPDUROPN2 ---
Progress Note: A&P Assessment and Plan (1) Urinary tract infection: Code(s): N39.0 - Urinary tract infection, site not specified Status: Acute Plan Clinical picture, urologically,? consistent with ascending pyelonephritis -> inflammation of bladder and right ureteral grace likely explains the hydronephrosis.? hematuria also likely d/t hemorrhagic cystitis.? No hydronephrosis on follow-up CT scan 06/19/22 Given improved overall clinical picture (improving creat., serum WBC, etc) will not plan ureteral stent placement.? ?urine culture growing E coli.Continue ? Antibiotics for 14 day course.? Formal hematuria evaluation in future only if blood and/or hydronephrosis recurrent after treatment of infection Subjective Subjective Date/Time Seen: 06/21/22 11:50 Patient feeling well Exam Narrative: Patient is awake and alert. No acute distress. Breathing is nonlabored. Abdomen soft nontender nondistended. His urine is clear yellow in Wilhelm catheter bag Objective Data Vital Signs Vital Signs: Vital Signs - 24 hr 06/20/22 12:00 06/20/22 12:07 06/20/22 12:13 Temperature Pulse Rate 89 104 H 105 H Respiratory Rate Blood Pressure 111/75 122/73 115/71 Pulse Oximetry Oxygen Delivery 06/20/22 12:00 06/20/22 13:40 06/20/22 14:07 Temperature 36.7 C Pulse Rate 99 98 87 Respiratory Rate 13 Blood Pressure 119/75 114/83 117/77 Pulse Oximetry 100 Oxygen Delivery 06/20/22 12:00 06/20/22 12:00 06/20/22 14:00 Temperature Pulse Rate 85 77 Respiratory Rate Blood Pressure Pulse Oximetry Oxygen Delivery Room Air 06/20/22 14:43 06/20/22 15:14 06/20/22 15:59 Temperature Pulse Rate 77 72 78 Respiratory Rate Blood Pressure 109/80 126/73 113/72 Pulse Oximetry Oxygen Delivery 06/20/22 16:10 06/20/22 14:00 06/20/22 16:00 Temperature 36.7 C 36.4 C L Pulse Rate 80 84 99 Respiratory Rate 22 H 28 H Blood Pressure 120/81 117/77 120/81 Pulse Oximetry 98 98 Oxygen Delivery 06/20/22 16:00 06/20/22 16:00 06/20/22 18:00 Temperature Pulse Rate 85 71 Respiratory Rate Blood Pressure Pulse Oximetry Oxygen Delivery Room Air 06/20/22 18:10 06/20/22 18:00 06/20/22 19:34 Temperature 36.9 C Pulse Rate 82 84 77 Respiratory Rate 20 Blood Pressure 109/76 109/76 120/75 Pulse Oximetry 97 Oxygen Delivery 06/20/22 20:00 06/20/22 20:00 06/20/22 22:00 Temperature 36.6 C Pulse Rate 71 70 Respiratory Rate 18 24 H Blood Pressure 103/67 99/67 L Pulse Oximetry 97 96 Oxygen Delivery Room Air 06/20/22 20:00 06/20/22 22:00 06/20/22 22:19 Temperature Pulse Rate 78 70 73 Respiratory Rate Blood Pressure 83/53 L Pulse Oximetry Oxygen Delivery 06/21/22 00:00 06/21/22 00:15 06/21/22 00:00 Temperature Pulse Rate 72 68 Respiratory Rate Blood Pressure 84/64 L Pulse Oximetry Oxygen Delivery Room Air 06/21/22 00:00 06/21/22 02:07 06/21/22 02:00 Temperature 36.9 C Pulse Rate 86 78 63 Respiratory Rate 20 Blood Pressure 96/61 L 89/68 L Pulse Oximetry 97 Oxygen Delivery 06/21/22 02:00 06/21/22 04:00 06/21/22 04:00 Temperature Pulse Rate 63 67 Respiratory Rate 23 H Blood Pressure 89/68 L Pulse Oximetry 96 Oxygen Delivery Room Air 06/21/22 04:00 06/21/22 04:00 06/21/22 06:00 Temperature 36.6 C Pulse Rate 71 71 73 Respiratory Rate 23 H Blood Pressure 100/68 100/68 Pulse Oximetry 93 Oxygen Delivery 06/21/22 06:00 06/21/22 06:00 06/21/22 07:30 Temperature Pulse Rate 73 73 65 Respiratory Rate 21 H Blood Pressure 103/68 103/68 109/68 Pulse Oximetry 99 Oxygen Delivery 06/21/22 09:12 06/21/22 08:00 06/21/22 08:00 Temperature 37.5 C Pulse Rate 75 74 74 Respiratory Rate 20 Blood Pressure 116/67 105/63 Pulse Oximetry 99 Oxygen Delivery 06/21/22 10:00 06/21/22 10:00 06/21/22 11:20 Temperature 37.6 C Pu
--- NOTE | 2022-06-21 14:30 | PM.IMPN ---
Progress Note: A&P Assessment and Plan (1) Shock: Code(s): R57.9 - Shock, unspecified Status: Acute Assessment and Plan: Patient presented with hypotension, falls, syncope, severe diarrhea with 12-14 episodes overnight with watery diarrhea -in the ED patient's systolic blood pressures were in the 50s, he was given 5 L IV fluid bolus -likely septic shock versus hypovolemic shock, likely related to UTI, severe diarrhea -central line was placed in the right femoral vein on 06/18/2022 -patient started on Levophed, will maintain MAP > 65 mm Hg or SBP? > 100 mmHg. -06/18: Blood cultures negative x2 -06/18: Urine cultures growing E coli, pansensitive -stool C diff is negative -stool ova parasite has been ordered and pending -stool culture ordered and pending -continue ceftriaxone, Flagyl (06/18), since blood cultures are negative, will discontinue vancomycin - midodrine added, taper Levophed as tolerated (2) Acute kidney injury: Code(s): N17.9 - Acute kidney failure, unspecified Status: Acute Assessment and Plan: Patient with acute kidney injury, creatinine of 7.0 BUN of 107 -likely related to severe diarrhea, hypovolemia, UTI,, severe sepsis/shock -patient with metabolic acidosis -resolved -received adequate IV fluids -lactic acid normalized -hematuria in the Wilhelm catheter -bicarb infusion and sodium bicarb tablets were discontinued -continue maintenance fluids with LR -06/18/2022: Renal ultrasound showed [id number] right hydronephrosis -urine lytes did not show prerenal picture, CK level mildly elevated, urine eosinophils are negative -continue to monitor urine output, renal function electrolytes -maintain adequate end organ perfusion with Levophed renal failure has resolved (3) Diarrhea: Code(s): R19.7 - Diarrhea, unspecified Status: Acute Assessment and Plan: Continue to have diarrhea yesterday, overnight it has slowed down -stool for C diff negative -stool for ova and parasites have been ordered -stool culture was ordered -continue Flagyl and ceftriaxone (4) Urinary tract infection: Code(s): N39.0 - Urinary tract infection, site not specified Status: Acute Assessment and Plan: UA revealed UTI, continue antibiotics as above -cultures positive for pansensitive E coli (5) Glaucoma: Code(s): H40.9 - Unspecified glaucoma Status: Acute Assessment and Plan: History of glaucoma (6) Hydronephrosis, right: Code(s): N13.30 - Unspecified hydronephrosis Status: Acute Assessment and Plan: Patient presented with hematuria, Renal ultrasound showed right mild hydronephrosis -appreciate urology evaluation, recommended CT scan of the abdomen -CT scan of the abdomen pelvis showed?Cystitis and bilateral pyelitis.2. Mild bilateral distal hydroureter -no plan for intervention per Urology Plan DVT prophylaxis:? SCDs as patient has hematuria, will hold any DVT chemoprophylaxis Stress ulcer prophylaxis:? Not applicable Nutrition:? Advanced to heart healthy diet Code Status: ? DNR Subjective Date/time seen: 06/21/22 14:30 Interval history: No overnight events. Remains afebrile. Tapering down Levophed. No other complaints. hematria has resovled now Review of Systems Review of Systems: All systems reviewed & are unremarkable except as noted in HPI and below Exam Narrative: General:? Pleasant gentleman in no acute distress HEENT:? Pupils equal and reactive, sclera is clear, moist oral mucosa Neck:? Supple, no lymphadenopathy Respiratory:? Clear to auscultation bilaterally no wheezing Cardiac:? regular rate and rhythm S1-S2 normal Abdomen:? Soft, nondistended, nontender, normoactive bowel sounds Extremities:? No edema, palpable pedal pulses Neuro:? Patient is awake, alert, oriented x3, answers to questions appropriately and follows simple commands in all extremities Skin:? Intact in wore Psych:? Normal affect and m
[2022-06-21 14:58] LABS: Vancomycin Trough < 5.0 ug/mL (10.0-20.0)
[2022-06-21] MEDS: LACTATED RINGERS 1,000 ML 50 ML IV CONT (21:08)
[2022-06-22] VITALS (19 sets, daily range): BP systolic 103–113; BP diastolic 40–80; PULSE 67–138; RESP 18–24; TEMP 36.4–36.8; O2SAT 97–100
--- NOTE | 2022-06-22 | ECHO_ITS ---
Patient Info Name: Wale Quinn Age: 67 years : 1955 Gender: Male Ht: 67 in Wt: 164 lbs BSA: 1.89 m2 HR: 123 bpm BP: 110 / 70 mmHg Heart Rhythm: Atrial Fibrillation Technical Quality: Fair Exam Date: 06/22/2022 7:49 AM Exam Location: [facility] Patient Status: Inpatient Admit Date: 06/18/2022 Staff Ordering Physician: Marc Arnold DO Uniforms Sales Representative: Perlita Gutierrez RDCS Attending Provider: Michael Florence MD Referring Physician: Catalina GUTIERREZ; Exam Type: CA echo doppler color flow Study Info Indications - new fib Complete two-dimensional, color flow and Doppler transthoracic echocardiogram is performed. Summary 1. Complete two-dimensional, color flow and Doppler transthoracic echocardiogram is performed. 2. Left ventricular chamber dimension is normal. 3. Left ventricular systolic function is normal, estimated at 65-70%. 4. Left atrial chamber dimension is mildly enlarged. 5. There is trace mitral valve regurgitation. Left Ventricle Left ventricular chamber dimension is normal. Left ventricular systolic function is normal, estimated at 65-70%. The left ventricular diastolic function is indeterminate. Right Ventricle Right ventricular chamber dimension is normal. Left Atria Left atrial chamber dimension is mildly enlarged. Right Atria Right atrial chamber dimension is normal. Aortic Valve The aortic valve is trileaflet. There is mild aortic valve sclerosis. Pulmonic Valve The pulmonic valve is not well visualized. Mitral Valve The mitral valve has normal leaflets. There is trace mitral valve regurgitation. Tricuspid Valve The tricuspid valve leaflets are normal. There is trace tricuspid valve regurgitation. Pericardium/Pleural The pericardium appears normal. Aorta The aortic root size at the sinus of Valsalva is normal. Left Ventricular Outflow Tract Name Value Normal LVOT 2D LVOT Diameter 2.0 cm LVOT Doppler LVOT Peak Gradient 4 mmHg LVOT Mean Gradient 2 mmHg LVOT VTI 17 cm LVOT VTI/AV VTI Ratio 0.8 LVOT Stroke Volume 52 ml LVOT CO 5.5 l/min LVOT CI 2.9 l/min/m2 Pulmonic Valve Name Value Normal RVOT Doppler RVOT Peak Gradient 1 mmHg PV Doppler PV Peak Gradient 2 mmHg Mitral Valve Name Value Normal MV Doppler
--- NOTE | 2022-06-22 00:15 | ECG_ITS ---
Measurements Intervals [place] Rate: 111 P: [place]: 0 QRS: 57 QRSD: 72 T: 56 QT: 308 QTc: 419 Interpretive Statements ATRIAL FIBRILLATION WITH RAPID VENTRICULAR RESPONSE ABNORMAL ECG COMPARED TO ECG 06/18/2022 09:00:51 ATRIAL FIBRILLATION NOW PRESENT Electronically Signed On 06-22-2022 6:45:13 PSYCHIATRIC SECRETARY by Ted Schaffer D.O.
[2022-06-22] MEDS: AMIODARONE 150 MG/D5W 100 ML 150 MG/100 ML BAG 600 MG IV CONT (01:29)
[2022-06-22] MEDS: AMIODARONE 360 MG/D5W 200 ML 360 MG/200 ML BAG 33.33 MG IV CONT (01:30)
[2022-06-22] MEDS: metroNIDAZOLE 500 MG/ISO 100ML 500 MG/100 ML BAG 100 MG IVPB ×2 (05:30→13:36)
[2022-06-22] MEDS: CENTRAL LINE FLUSH 10 ML IV PUSH ×3 (05:30→21:36)
[2022-06-22 05:39] LABS: Basophils Absolute Auto 0.1 K/mm3 (0.0-0.1); Eosinophils Absolute Auto 0.5 K/mm3 (0-0.3); Eosinophils Percent Auto 7.4 % (0-4.4); Hematocrit 24.7 % (42.0-52.0); Hemoglobin 7.9 g/dL (14.0-18.0); Immature Granulocyte Absolute 0.04 K/mm3 (0.00-0.031); Immature Granulocyte Percent A 0.6 % (0-0.5); Lymphocytes Absolute Auto 1.19 K/mm3 (0.9-3.2); Lymphocytes Percent Auto 19.2 % (18.3-44.2); Mean Corpuscular Hemoglobin 32.6 pg (26-34); Mean Corpuscular Volume 102.1 fl (80-100); Mean Platelet Volume 8.8 fl (7.4-10.4); Monocytes Absolute Auto 0.7 K/mm3 (0.1-0.6); Monocytes Percent Auto 10.8 % (2.6-8.5); Neutrophils Absolute Auto 3.8 K/mm3 (1.3-6.7); Platelet Count Result 231 k/mm3 (150-375); Red Blood Count 2.42 M/mm3 (4.6-6.20); Red Cell Distribution Width 12.6 % (11.5-14.5); White Blood Count 6.2 K/mm3 (4.5-10.0)
[2022-06-22 05:49] LABS: Alanine Aminotransferase 14 U/L (6-50); Albumin Level 3.3 g/dL (3.5-5.1); Alkaline Phosphatase 44 U/L (38-126); Anion Gap 7 mmol/L (8-16); Aspartate Amino Transferase 32 U/L (17-59); Bilirubin,Total 0.1 mg/dL (0.2-1.3); Blood Urea Nitrogen 13 mg/dL (9-20); CRP 5.2 mg/dL (<1.0); Calcium 7.9 mg/dL (8.4-10.2); Carbon Dioxide 23 mmol/L (22-30); Chloride 104 mmol/L (98-107); Estimated CRCL calculation 60 ml/min; Estimated Glomerular Filt Rate > 60; Glucose 97 mg/dL (65-110); Magnesium 2.1 mg/dL (1.6-2.3); Phosphorus 2.3 mg/dL (2.5-4.5); Potassium 3.8 mmol/L (3.4-5.0); Sodium 134 mmol/L (137-145)
--- NOTE | 2022-06-22 06:37 | WPDUROPN2 ---
Progress Note: A&P Assessment and Plan (1) Hydronephrosis, right: Code(s): N13.30 - Unspecified hydronephrosis Status: Acute (2) Acute kidney injury: Code(s): N17.9 - Acute kidney failure, unspecified Status: Acute Assessment and Plan: Dramatic improvement over weekend. Home anytime from our standpoint. Should f/u in 2-3 weeks to re-check urine and see if hematuria resolved. Subjective Subjective Date/Time Seen: 06/22/22 06:37 No complaints Review of Systems Cardiovascular: Cardiovascular: Denies chest pain, Denies lightheadedness, Denies palpitations and Denies dyspnea Respiratory: Respiratory: Denies dyspnea Gastrointestinal: Gastrointestinal: Denies diarrhea, Denies nausea and Denies vomiting Genitourinary: Genitourinary: Denies hematuria and Denies dysuria Endocrine: Endocrine: Denies palpitations Exam Const: General: no acute distress Resp: Effort & Inspection: normal respiratory effort GI: Inspection: non-distended GI Palp: No abdominal tenderness and No Guarding due to palpation present (GI) Auscultation: normal bowel sounds Objective Data Vital Signs Vital Signs: Vital Signs - 24 hr 06/21/22 07:30 06/21/22 09:12 06/21/22 08:00 Temperature 99.5 F Pulse Rate 65 75 74 Respiratory Rate 20 Blood Pressure 109/68 116/67 105/63 Pulse Oximetry 99 Oxygen Delivery 06/21/22 08:00 06/21/22 10:00 06/21/22 10:00 Temperature 99.6 F Pulse Rate 74 77 75 Respiratory Rate 22 H Blood Pressure 103/68 Pulse Oximetry 98 Oxygen Delivery 06/21/22 11:20 06/21/22 12:00 06/21/22 12:00 Temperature 98.9 F Pulse Rate 78 90 87 Respiratory Rate 21 H Blood Pressure 111/71 111/74 Pulse Oximetry 90 Oxygen Delivery 06/21/22 08:00 06/21/22 12:00 06/21/22 14:00 Temperature Pulse Rate 70 Respiratory Rate Blood Pressure Pulse Oximetry Oxygen Delivery Room Air Room Air 06/21/22 14:00 06/21/22 16:00 06/21/22 16:00 Temperature 98.7 F Pulse Rate 68 66 Respiratory Rate 20 Blood Pressure 118/99 H Pulse Oximetry 99 Oxygen Delivery Room Air 06/21/22 16:00 06/21/22 18:00 06/21/22 19:59 Temperature 98.5 F 98.0 F Pulse Rate 67 84 80 Respiratory Rate 22 H 20 Blood Pressure 109/68 114/77 Pulse Oximetry 98 100 Oxygen Delivery 06/21/22 20:00 06/21/22 20:00 06/21/22 23:18 Temperature 98.1 F Pulse Rate 80 72 100 Respiratory Rate 20 20 Blood Pressure 105/60 Pulse Oximetry 100 99 Oxygen Delivery Room Air 06/21/22 22:00 06/22/22 00:00 06/22/22 00:00 Temperature Pulse Rate 68 93 100 Respiratory Rate 20 Blood Pressure Pulse Oximetry 99 Oxygen Delivery Room Air 06/22/22 01:09 06/22/22 01:29 06/22/22 01:30 Temperature Pulse Rate 138 H 128 H 125 H Respiratory Rate Blood Pressure Pulse Oximetry Oxygen Delivery 06/22/22 02:00 06/22/22 04:00 06/22/22 04:00 Temperature Pulse Rate 87 110 H 110 H Respiratory Rate 20 Blood Pressure Pulse Oximetry 99 Oxygen Delivery Room Air 06/22/22 04:00 06/22/22 06:00 Temperature 98.0 F Pulse Rate 110 H 123 H Respiratory Rate 18 Blood Pressure 110/70 Pulse Oximetry 99 Oxygen Delivery Intake/Output Intake/Output: Intake & Output 06/19/22 06/20/22 06/21/22 06/22/22 23:59 23:59 23:59 23:59 Intake Total 3733.7 5061 2205 400 Output Total 5500 1950 3225 1100 Balance -1766.3 3111 -1020 -700 Meds/Results Medications: Active Medications Generic Name Dose Route Start Last Admin Trade Name Freq PRN Reason Stop Dose Admin Metronidazole 500 mg in 100 mls @ 100 mls/hr 06/18/22 14:55 06/22/22 05:30 Flagyl 500 Mg/Iso Soln 100 Ml IVPB 100 mls/hr Q8HR ALEXIS Administration Ceftriaxone Sodium 2 gm/ 100 mls @ 200 mls/hr 06/19/22 11:00 06/21/22 10:23 Sodium Chloride IVPB 200 mls/hr Q24H ALEXIS Administration Lactated Ringer's 1,000 mls @ 50 mls/hr 06/21/22 07:30 1
[2022-06-22] MEDS: AMIODARONE 360 MG/D5W 200 ML 360 MG/200 ML BAG 16.67 MG IV CONT (08:05)
[2022-06-22] MEDS: SODIUM PHOSPHATE 20 MM in DEXTROSE 5% IN WATER 250 ML 50 MM IVPB (09:08)
[2022-06-22] MEDS: PANTOPRAZOLE SODIUM IV 40 MG VIAL IV PUSH ×2 (12:43→21:35)
[2022-06-22] MEDS: MIDODRINE HCL 10 MG TABLET PO ×2 (12:43→12:44)
[2022-06-22] MEDS: cefTRIAXone 2 GM in SODIUM CHLORIDE 0.9% IV 100 ML 200 ML IVPB (12:43)
--- NOTE | 2022-06-22 13:02 | ECG_ITS ---
Measurements Intervals [place] Rate: 72 P: 55 DC: 159 QRS: 59 QRSD: 73 T: 55 QT: 407 QTc: 448 Interpretive Statements SINUS RHYTHM NORMAL ECG COMPARED TO ECG 06/22/2022 01:02:12 SINUS RHYTHM NOW PRESENT Electronically Signed On 06-22-2022 13:37:09 BENEFITS COORDINATOR by Ted Schaffer D.O.
--- NOTE | 2022-06-22 13:05 | PC.NURSE ---
Patient appears to have converted to normal sinus rhythm, EKG ordered to verify.
--- NOTE | 2022-06-22 13:17 | PM.CNCAR ---
Assessment and Plan Assessment and plan (1) Atrial fibrillation: Code(s): I48.91 - Unspecified atrial fibrillation Status: Acute Plan This is a 67-year-old man presenting with severe diarrhea to the point of volume depletion hypotension acute renal failure about 4 days ago. Everything is much better following fluid resuscitation and jain of adequate blood pressure. He had an episode of atrial fibrillation last evening which has been terminated with intravenous amiodarone. An echocardiogram was done earlier today which does not show any significant structural cardiac abnormalities. Amiodarone has been discontinued. I am going to recommend placing him on a modest dose of metoprolol since he also was previously treated for hypertension. I would also recommend weaning and hopefully discontinuing midodrine while he is in the hospital. He also of course needs a workup of his significant anemia. Because of his anemia I am not going to recommend anticoagulating him at this time Kana Polo MD [facility] History of Present Illness History of Present Illness Consult date/time: 06/22/22 13:17 Consult reason: atrial fibrillation Reason For Visit: DIARRHEA,HYPOTENSION,DENNIS Narrative: This is a 67-year-old man I am seeing at the request of the hospitalist because of atrial fibrillation which occurred during this hospitalization. Patient is in the IMU room 2. 0 3 and a P appears to be in no distress and offers no complaints currently. He was hospitalized after being seen in the emergency room 4 days ago a complaining of weakness falling he was felt to be markedly dehydrated after having a number of days of profuse diarrhea. He was hypotensive had acute renal failure with a creatinine of 7 and a BUN over 100 was placed on fluid resuscitation and for a short time on vasopressors in the ICU. He did not have any cardiac complaints such as chest pain shortness of breath palpitations or syncope. During this hospitalization he went into atrial fibrillation last night it looks like the hospitalist ordered some IV amiodarone which has converted him to sinus rhythm as of about an hour ago. He reports no previous history of cardiac problems of any kind. He states the atrial fibrillation occurred in the middle of the night he was not particularly aware of it in the way of the onset of any palpitations or other symptoms. According to the patient he was previously treated for hypertension but was not taking any medication for anything upon coming into the hospital. Apparently he does not follow regularly with his PCP and has not been compliant with medical care and follow-up. For reasons that are not specifically detailed in the chart there are do not resuscitate orders on his record. In addition to that described above he is significantly anemic with a hemoglobin of just over 7 g. There is no active/overt bleeding according to his history. With fluid resuscitation and normalization of his blood pressure his renal function has essentially normalized. Review of Systems Constitutional: Constitutional: Reports lethargy Eyes: Eyes: Reports no additional eye complaints ENT: Reports system reviewed and no additional complaints, except as documented Cardiovascular: Cardiovascular: Reports no additional cardiovascular complaints Respiratory: Respiratory: Reports no additional respiratory complaints Gastrointestinal: Gastrointestinal: Reports as per HPI and Reports diarrhea Musculoskeletal: Musculoskeletal: Reports no additional musculoskeletal complaints Integumentary/Breasts: Skin/Breast: Reports system reviewed and no additional complaints, except as docu Neurologic: Reports system reviewed and no additional complaints, except as documented Endocrine: Endocrine: Reports no additional endocrine complaints Hematologic/Lymphatic: Hematologic/Lymphatic: Reports no additional hematologic/lymphatic complaints Allergic/Immunologic: Allergic
[2022-06-22] MEDS: METOPROLOL SUCCINATE EXT REL 25 MG TABCR PO (14:35)
--- NOTE | 2022-06-22 15:28 | PM.IMPN ---
Progress Note: A&P Assessment and Plan (1) Shock: Code(s): R57.9 - Shock, unspecified Status: Acute Assessment and Plan: Patient presented with hypotension, falls, syncope, severe diarrhea with 12-14 episodes overnight with watery diarrhea -in the ED patient's systolic blood pressures were in the 50s, he was given 5 L IV fluid bolus -likely septic shock versus hypovolemic shock, likely related to UTI, severe diarrhea -central line was placed in the right femoral vein on 06/18/2022 -patient started on Levophed, will maintain MAP > 65 mm Hg or SBP? > 100 mmHg. -06/18: Blood cultures negative x2 -06/18: Urine cultures growing E coli, pansensitive -stool C diff is negative -stool ova parasite has been ordered and pending -stool culture ordered and pending -continue ceftriaxone, Flagyl (06/18), since blood cultures are negative, stopped vancomycin - midodrine added, levophed tapered. will switch to oral omnicef and falgyl oral .total 10 days course. (2) Acute kidney injury: Code(s): N17.9 - Acute kidney failure, unspecified Status: Acute Assessment and Plan: Patient with acute kidney injury, creatinine of 7.0 BUN of 107 -likely related to severe diarrhea, hypovolemia, UTI,, severe sepsis/shock -patient with metabolic acidosis -resolved -received adequate IV fluids -lactic acid normalized -hematuria in the Clark catheter -bicarb infusion and sodium bicarb tablets were discontinued -continue maintenance fluids with LR -06/18/2022: Renal ultrasound showed [id number] right hydronephrosis -urine lytes did not show prerenal picture, CK level mildly elevated, urine eosinophils are negative -continue to monitor urine output, renal function electrolytes -maintain adequate end organ perfusion with Levophed renal failure has resolved (3) Diarrhea: Code(s): R19.7 - Diarrhea, unspecified Status: Acute Assessment and Plan: Continue to have diarrhea, overnight it has slowed down -stool for C diff negative -stool for ova and parasites have been ordered -stool culture reviewed -continue Flagyl and ceftriaxone (4) Urinary tract infection: Code(s): N39.0 - Urinary tract infection, site not specified Status: Acute Assessment and Plan: UA revealed UTI, continue antibiotics as above -cultures positive for pansensitive E coli (5) Glaucoma: Code(s): H40.9 - Unspecified glaucoma Status: Acute Assessment and Plan: History of glaucoma (6) Hydronephrosis, right: Code(s): N13.30 - Unspecified hydronephrosis Status: Acute Assessment and Plan: Patient presented with hematuria, Renal ultrasound showed right mild hydronephrosis -appreciate urology evaluation, recommended CT scan of the abdomen -CT scan of the abdomen pelvis showed?Cystitis and bilateral pyelitis.2. Mild bilateral distal hydroureter -no plan for intervention per Urology Plan Afiv with RVR: new onset. unclear etiology. rpelace lytes. not sob. cardiology consultation. on amiodarone drip. DVT prophylaxis:? SCDs as patient has hematuria, will hold any DVT chemoprophylaxis, will pt ot to ambulate Stress ulcer prophylaxis:? Not applicable Nutrition:? Advanced to heart healthy diet Code Status: ? DNR Subjective Date/time seen: 06/22/22 15:28 Interval history: overnight he went into afib with rvr. startred on amiodarone. no prior hx of afib. phosphorus is low no further hematuria. he wants clark out and femoral line out Review of Systems Review of Systems: All systems reviewed & are unremarkable except as noted in HPI and below Exam Narrative: General:? Pleasant gentleman in no acute distress HEENT:? Pupils equal and reactive, sclera is clear, moist oral mucosa Neck:? Supple, no lymphadenopathy Respiratory:? Clear to auscultation bilaterally no wheezing Cardiac:? regular rate and rhythm S1-S2 normal Abdomen:? Soft, nondistended, nontender, normoactive bowel sounds
[2022-06-22] MEDS: MIDODRINE HCL 2.5 MG TABLET 5 MG PO (16:02)
[2022-06-22] MEDS: metroNIDAZOLE 250 MG TABLET 500 MG PO (21:35)
[2022-06-22] MEDS: LACTATED RINGERS 1,000 ML 50 ML IV CONT (21:36)
[2022-06-23] VITALS (15 sets, daily range): BP systolic 100–123; BP diastolic 61–85; PULSE 60–95; RESP 16–72; TEMP 36.6–36.9; O2SAT 97–100
[2022-06-23 04:19] LABS: Basophils Absolute Auto 0.1 K/mm3 (0.0-0.1); Basophils Percent Auto 0.9 % (0.2-1.2); Eosinophils Absolute Auto 0.4 K/mm3 (0-0.3); Eosinophils Percent Auto 6.1 % (0-4.4); Hematocrit 26.2 % (42.0-52.0); Hemoglobin 8.5 g/dL (14.0-18.0); Immature Granulocyte Absolute 0.06 K/mm3 (0.00-0.031); Immature Granulocyte Percent A 0.9 % (0-0.5); Lymphocytes Percent Auto 14.6 % (18.3-44.2); Mean Corpuscular HGB Conc 32.4 g/dl (32-36); Mean Corpuscular Hemoglobin 33.5 pg (26-34); Mean Corpuscular Volume 103.1 fl (80-100); Mean Platelet Volume 8.7 fl (7.4-10.4); Monocytes Absolute Auto 0.7 K/mm3 (0.1-0.6); Monocytes Percent Auto 9.8 % (2.6-8.5); Neutrophils Absolute Auto 4.6 K/mm3 (1.3-6.7); Neutrophils Percent Auto 67.7 % (45.5-73.1); Platelet Count Result 270 k/mm3 (150-375); Red Blood Count 2.54 M/mm3 (4.6-6.20); Red Cell Distribution Width 12.8 % (11.5-14.5); White Blood Count 6.8 K/mm3 (4.5-10.0)
[2022-06-23 04:41] LABS: Alanine Aminotransferase 15 U/L (6-50); Albumin Level 3.3 g/dL (3.5-5.1); Alkaline Phosphatase 44 U/L (38-126); Anion Gap 9 mmol/L (8-16); Aspartate Amino Transferase 39 U/L (17-59); Bilirubin,Total 0.2 mg/dL (0.2-1.3); Blood Urea Nitrogen 11 mg/dL (9-20); Calcium 8.1 mg/dL (8.4-10.2); Carbon Dioxide 22 mmol/L (22-30); Chloride 102 mmol/L (98-107); Estimated CRCL calculation 66 ml/min; Estimated Glomerular Filt Rate > 60; Glucose 87 mg/dL (65-110); Potassium 3.8 mmol/L (3.4-5.0); Sodium 133 mmol/L (137-145)
[2022-06-23] MEDS: metroNIDAZOLE 250 MG TABLET 500 MG PO ×3 (05:40→21:08)
[2022-06-23] MEDS: CENTRAL LINE FLUSH 10 ML IV PUSH (05:41)
[2022-06-23] MEDS: CEFDINIR 300 MG CAPSULE PO ×2 (08:45→21:08)
[2022-06-23] MEDS: PANTOPRAZOLE SODIUM IV 40 MG VIAL IV PUSH ×2 (08:45→21:08)
[2022-06-23] MEDS: METOPROLOL SUCCINATE EXT REL 25 MG TABCR PO (08:45)
[2022-06-23] MEDS: MIDODRINE HCL 2.5 MG TABLET 5 MG PO (08:45)
--- NOTE | 2022-06-23 10:45 | PM.PNCARD ---
Progress Note: A&P Assessment and Plan (1) Paroxysmal A-fib: Code(s): I48.0 - Paroxysmal atrial fibrillation Status: Acute Assessment and Plan: 1 episode of paroxysmal AFib in the setting of acute physiologic stress. May not recur. Not anticoagulated due to anemia and hemorrhagic cystitis No recurrence of AFib on metoprolol SR 25 mg daily Reviewed with patient; encouraged him to call if he felt any palpitations after discharge (2) Shock: Code(s): R57.9 - Shock, unspecified Status: Acute Assessment and Plan: Admitted with shock secondary to diarrhea etc. Transiently on Levophed Blood pressure stable on midodrine 10 mg t.i.d. Hematuria resolved Acute kidney injury resolved Increase activity; up to chair (3) Hypertension: Code(s): I10 - Essential (primary) hypertension Status: Acute Assessment and Plan: History of hypertension Recommending ongoing medical care for treatment of hypertension Subjective Date/time seen: Follow-up for transient atrial fibrillation and a 67-year-old male who was admitted with shock, and DENNIS due to severe diarrhea. He also has had hemorrhagic cystitis/pyelonephritis and anemia, so not anticoagulated. Amiodarone gtt has been discontinued and now metoprolol succinate 25 mg q.d. Echo showed EF 65-70%, no significant valve disease. 06/23/22 10:45 I feel great! I'm hoping I can get out of here tomorrow! Pt doing well today, though hasn't been out of bed yet. SBP 103-113 on midodrine. Renal function normalized. Tele: NSR Review of Systems Review of Systems: No chest pain, shortness of breath, dizziness, hematuria, or diarrhea. Exam Const: General: cooperative, healthy appearing and comfortable; No confusion Orientation/consciousness: oriented to person, patient oriented x3 and No confusion Other: Laughing and seems to be in good spirits Neck: Neck: supple Resp: Effort & Inspection: normal respiratory effort Auscultation: clear to auscultation bilaterally Cardio: Rate: regular rate Rhythm: regular rhythm Heart sounds: no murmurs GI: Inspection: normal to inspection GI Palp: No abdominal tenderness Skin: General skin exam: normal color and no rashes or lesions noted Neuro: General: oriented to person, patient oriented x3 and No confusion Extrem: Right lower extremity: no edema Left lower extremity: no edema Psych: Appearance: grossly normal Mental Status: mental status grossly normal Objective Data Vital Signs Vital Signs: Vital Signs - 24 hr 06/22/22 12:00 06/22/22 12:00 06/22/22 12:00 Temperature 97.6 F Pulse Rate 101 H 77 105 H Respiratory Rate 22 H Blood Pressure 107/69 Pulse Oximetry 100 Oxygen Delivery Room Air 06/22/22 13:07 06/22/22 14:35 06/22/22 14:00 Temperature Pulse Rate 84 81 69 Respiratory Rate Blood Pressure Pulse Oximetry Oxygen Delivery 06/22/22 16:00 06/22/22 16:00 06/22/22 16:00 Temperature 97.8 F Pulse Rate 76 69 Respiratory Rate 18 Blood Pressure 108/72 Pulse Oximetry 100 Oxygen Delivery Room Air 06/22/22 18:00 06/22/22 20:00 06/22/22 20:00 Temperature 98.0 F Pulse Rate 75 67 77 Respiratory Rate 18 Blood Pressure 108/40 L Pulse Oximetry 97 Oxygen Delivery 06/22/22 20:00 06/22/22 22:00 06/22/22 23:37 Temperature 97.9 F Pulse Rate 67 98 79 Respiratory Rate 18 20 Blood Pressure 113/79 Pulse Oximetry 97 97 Oxygen Delivery Room Air 06/23/22 00:00 06/23/22 00:00 06/23/22 02:00 Temperature Pulse Rate 70 70 72 Respiratory Rate 20 Blood Pressure Pulse Oximetry 97 Oxygen Delivery Room Air 06/23/22 04:00 06/23/22 04:00 06/23/22 04:00 Temperature 98.0 F Pulse Rate 74 72 60 Respiratory Rate 20 20 Blood Pressure 105/77 Pulse Oximetry 97 97 Oxygen Delivery Room Air 06/23/22 06:00 06/23/22 07:37 06/23/22 08:00 Temperature 98.4 F Pulse Rate 60 87 R
[2022-06-23 13:29] LABS: Anti Glomerular Basement Memb <1.0 AI (<1.0)
--- NOTE | 2022-06-23 15:02 | PM.IMPN ---
Progress Note: A&P Assessment and Plan (1) Shock: Code(s): R57.9 - Shock, unspecified Status: Acute Assessment and Plan: Patient presented with hypotension, falls, syncope, severe diarrhea with 12-14 episodes overnight with watery diarrhea -in the ED patient's systolic blood pressures were in the 50s, he was given 5 L IV fluid bolus -likely septic shock versus hypovolemic shock, likely related to UTI, severe diarrhea -central line was placed in the right femoral vein on 06/18/2022 -patient started on Levophed, will maintain MAP > 65 mm Hg or SBP? > 100 mmHg. -06/18: Blood cultures negative x2 -06/18: Urine cultures growing E coli, pansensitive -stool C diff is negative -stool ova parasite has been ordered and pending -stool culture ordered and pending -continue ceftriaxone, Flagyl (06/18), since blood cultures are negative, stopped vancomycin - midodrine added, levophed tapered. Switched to oral omnicef and falgyl oral .total 10 days course. (2) Acute kidney injury: Code(s): N17.9 - Acute kidney failure, unspecified Status: Acute Assessment and Plan: Patient with acute kidney injury, creatinine of 7.0 BUN of 107 -likely related to severe diarrhea, hypovolemia, UTI,, severe sepsis/shock -patient with metabolic acidosis -resolved -received adequate IV fluids -lactic acid normalized -hematuria in the Wilhelm catheter -bicarb infusion and sodium bicarb tablets were discontinued -continue maintenance fluids with LR -06/18/2022: Renal ultrasound showed [id number] right hydronephrosis -urine lytes did not show prerenal picture, CK level mildly elevated, urine eosinophils are negative -continue to monitor urine output, renal function electrolytes -maintain adequate end organ perfusion with Levophed renal failure has resolved (3) Diarrhea: Code(s): R19.7 - Diarrhea, unspecified Status: Acute Assessment and Plan: Continue to have diarrhea, overnight it has slowed down -stool for C diff negative -stool for ova and parasites have been ordered -stool culture reviewed -continue Flagyl and ceftriaxone (4) Urinary tract infection: Code(s): N39.0 - Urinary tract infection, site not specified Status: Acute Assessment and Plan: UA revealed UTI, continue antibiotics as above -cultures positive for pansensitive E coli (5) Glaucoma: Code(s): H40.9 - Unspecified glaucoma Status: Acute Assessment and Plan: History of glaucoma (6) Hydronephrosis, right: Code(s): N13.30 - Unspecified hydronephrosis Status: Acute Assessment and Plan: Patient presented with hematuria, Renal ultrasound showed right mild hydronephrosis -appreciate urology evaluation, recommended CT scan of the abdomen -CT scan of the abdomen pelvis showed?Cystitis and bilateral pyelitis.2. Mild bilateral distal hydroureter -no plan for intervention per Urology Plan Afiv with RVR: new onset. unclear etiology. rpelace lytes. not sob. cardiology consultation. on amiodarone drip. amiodarone switched to oral. Back to sinus rhythm. Not on anticoagulation due to anemia and recent hematuria DVT prophylaxis:? SCDs as patient has hematuria, will hold any DVT chemoprophylaxis Stress ulcer prophylaxis:? Not applicable Nutrition:? Advanced to heart healthy diet Code Status: ? DNR PT OT to see once cleared plan to discharge likely in 1-2 days. Like to taper off midodrine as well. Will hold midodrine does and watch his blood pressure. Subjective Date/time seen: 06/23/22 15:02 Interval history: back to sinus rhythm. Has not work with therapy yet. Denies any new complaints. No further hematuria. Diarrhea has slowed on as well. Review of Systems Review of Systems: All systems reviewed & are unremarkable except as noted in HPI and below Exam Narrative: General:? Pleasant gentleman in no acute distress HEENT:? Pupils equal and reactive, sclera is clear, moist oral
[2022-06-23 17:12] LABS: Osmolality, Urine 373 mOsm/kg (50-1200)
[2022-06-24] VITALS: BP 108/71; PULSE 70; PULSE 78; RESP 16; TEMP 37; O2SAT 98
[2022-06-24 02:00] VITALS: PULSE 66
[2022-06-24 02:25] LABS: ANCA Screen Negative (Negative)
[2022-06-24 04:00] VITALS: BP 112/70; PULSE 73; PULSE 89; RESP 16; RESP 18; TEMP 36.3; O2SAT 97; O2SAT 98
[2022-06-24 05:20] LABS: Basophils Absolute Auto 0.1 K/mm3 (0.0-0.1); Eosinophils Absolute Auto 0.3 K/mm3 (0-0.3); Eosinophils Percent Auto 5.4 % (0-4.4); Hemoglobin 8.7 g/dL (14.0-18.0); Immature Granulocyte Absolute 0.06 K/mm3 (0.00-0.031); Lymphocytes Absolute Auto 1.24 K/mm3 (0.9-3.2); Lymphocytes Percent Auto 20.4 % (18.3-44.2); Mean Corpuscular HGB Conc 32.2 g/dl (32-36); Mean Corpuscular Hemoglobin 33.6 pg (26-34); Mean Corpuscular Volume 104.2 fl (80-100); Mean Platelet Volume 8.8 fl (7.4-10.4); Monocytes Absolute Auto 0.6 K/mm3 (0.1-0.6); Monocytes Percent Auto 9.5 % (2.6-8.5); Neutrophils Absolute Auto 3.8 K/mm3 (1.3-6.7); Neutrophils Percent Auto 62.7 % (45.5-73.1); Platelet Count Result 304 k/mm3 (150-375); Red Blood Count 2.59 M/mm3 (4.6-6.20); Red Cell Distribution Width 12.9 % (11.5-14.5); White Blood Count 6.1 K/mm3 (4.5-10.0)
[2022-06-24 05:21] LABS: Alanine Aminotransferase 19 U/L (6-50); Albumin Level 3.4 g/dL (3.5-5.1); Alkaline Phosphatase 47 U/L (38-126); Anion Gap 8 mmol/L (8-16); Aspartate Amino Transferase 56 U/L (17-59); Bilirubin,Total 0.3 mg/dL (0.2-1.3); Blood Urea Nitrogen 12 mg/dL (9-20); Calcium 8.3 mg/dL (8.4-10.2); Carbon Dioxide 23 mmol/L (22-30); Chloride 105 mmol/L (98-107); Estimated CRCL calculation 60 ml/min; Estimated Glomerular Filt Rate > 60; Glucose 88 mg/dL (65-110); Sodium 136 mmol/L (137-145)
[2022-06-24] MEDS: metroNIDAZOLE 250 MG TABLET 500 MG PO ×2 (05:30→12:43)
[2022-06-24 06:00] VITALS: PULSE 74
[2022-06-24 08:00] VITALS: BP 121/78; PULSE 76; PULSE 77; RESP 24; TEMP 36.2; O2SAT 100
--- NOTE | 2022-06-24 08:47 | PM.PNCARD ---
Progress Note: A&P Assessment and Plan (1) Paroxysmal A-fib: Code(s): I48.0 - Paroxysmal atrial fibrillation Status: Acute Assessment and Plan: 1 episode of paroxysmal AFib in the setting of acute physiologic stress. Has not recurred. Not anticoagulated due to anemia and hemorrhagic cystitis No recurrence of AFib on metoprolol SR 25 mg daily Reviewed with patient; encouraged him to call if he felt any palpitations after discharge (2) Shock: Code(s): R57.9 - Shock, unspecified Status: Acute Assessment and Plan: Admitted with shock secondary to diarrhea etc. Transiently on Levophed Blood pressure stable on midodrine 10 mg t.i.d.; Discontinued yesterday. Hematuria resolved Acute kidney injury resolved DC IV fluids Increase activity; Ambulate with assistance. Home this pm or tmr if BP OK (3) Hypertension: Code(s): I10 - Essential (primary) hypertension Status: Acute Assessment and Plan: History of hypertension Patient had stopped his BP medications on his own a few months ago. Recommending ongoing medical care for treatment of hypertension Reviewed long-term affects of and controlled hypertension. (4) DNR (do not resuscitate) discussion: Code(s): Z71.89 - Other specified counseling Status: Acute Assessment and Plan: I thought it was unusual for a fairly healthy person to be a DNR and discussed the patient's DNR with him. Patient confirms that he does not want resuscitation or to be on life support even for short period of time for a potentially reversible cause. Subjective Date/time seen: Follow-up for transient atrial fibrillation and a 67-year-old male who was admitted with shock, and DENNIS due to severe diarrhea.? He also has had hemorrhagic cystitis/pyelonephritis and anemia, so not anticoagulated.? Amiodarone gtt has been discontinued and now metoprolol succinate 25 mg q.d.? Echo showed EF 65-70%, no significant valve disease. 06/23/22? 10:45? I feel great!? I'm hoping I can get out of here tomorrow! ? Pt doing well today, though hasn't been out of bed yet.? SBP 103-113 on midodrine.? Renal function normalized. Increase activity, cont metoprolol. Tele:? NSR 06/24/22 08:47 Patient has been doing well, back and forth to the bathroom, initially a little weak but subsequently has done fine , without lightheadedness or dizziness. Strongly desires to be discharged today. no more diarrhea or bleeding. Midodrine on hold. Telemetry: NSR Review of Systems Review of Systems: no chest pain, shortness of breath, dizziness. Legs were initially a little weak. Eating well. No hematuria or diarrhea. Exam Const: General: cooperative, healthy appearing, comfortable and no acute distress; No confusion Orientation/consciousness: oriented to person, patient oriented x3 and No confusion Other: Laughing and seems to be in good spirits HENMT: Mouth: Yes moist mucous membranes Eyes: Sclera: sclerae normal Pupils: Equal, round and reactive pupils present Neck: Neck: supple and no JVD Other: Normal carotid upstrokes, no bruits Resp: Effort & Inspection: normal respiratory effort Auscultation: clear to auscultation bilaterally Cardio: Rate: regular rate Rhythm: regular rhythm Heart sounds: no murmurs GI: Inspection: normal to inspection Auscultation: normal bowel sounds Skin: General skin exam: normal color and no rashes or lesions noted Neuro: General: oriented to person, patient oriented x3 and No confusion Cranial nerves: Yes Equal, round and reactive pupils present Other: Alert and oriented x3 Extrem: Right lower extremity: no edema Left lower extremity: no edema Other: No edema, good distal pulse Psych: Appearance: grossly normal Mental Status: mental status grossly normal Objective Data Vital Signs Vital Signs: Vital Signs - 24 hr 06/23/22 10:00 06/23/22 11:55 06/23/22 12:00 Temperatu
[2022-06-24] MEDS: CEFDINIR 300 MG CAPSULE PO (08:48)
[2022-06-24] MEDS: METOPROLOL SUCCINATE EXT REL 25 MG TABCR PO (08:48)
[2022-06-24] MEDS: PANTOPRAZOLE SODIUM IV 40 MG VIAL IV PUSH (08:48)
[2022-06-24 10:00] VITALS: PULSE 99
[2022-06-24 13:57] LABS: Chloride Rand Ur 79 mmol/L (32-290); Chloride/Creatinine Rand Ur 152 (23-275); Creatinine Random Urine 52 mg/dL (20-320)
--- NOTE | 2022-06-24 14:06 | PM.DS ---
DS: Admitting Diagnosis Discharge Date 06/24/2022 Admitting Diagnosis Syncope DS: Summary Hospital Course Hospital Course: This is a 67-year-old male patient who came to the hospital who was driven to the emergency room from home.? His sister has accompanied him.? The patient was complaining of passing out over the last 2 days. The patient stated that he is not taking any medication has a history of hypertension and hyperlipidemia and is no longer taking his medications.? The patient stated he had similar symptoms 5-6 months ago.?The patient had massive diarrhea all night long.? His white count is noted to be 16.0.? H&H is 11.1 and 33.9.? Sodium is noted to be 131.? Bicarb is 13 anion gap 26.? Creatinine 7.0 GFR is 8.? Glucose is 205.? Lactic is only 1.2.? Total creatinine kinase is 496.? C reactive protein is 4.4.? His urine is bright red.? Stool for occult blood is positive.? The patient is negative for C diff he is negative for influenza A/B and COVID.? Renal ultrasound was read as mild to moderate right hydroureteronephrosis.? The patient was given 2 L of normal saline and 1 L of lactic Ringer's.? Patient's blood pressure remained low even with the IV fluids.? A central line was started in the emergency room and the patient was started on Levophed.? The engineering illustrator was notified and agreed to accept the patient into ICU.? Nephrology has been consulted.? The patient was started on Rocephin in the emergency room and Levaquin.? He had also been given a dose of Zosyn.? The patient was started on vancomycin.? The patient was also started on a bicarb drip.? Wants his blood pressure improved Levophed was stopped. Blood cultures have been negative. Urine culture growing E coli which is pansensitive. Stool C diff is negative. Vancomycin was stopped and patient was continued on the cefdinir and Flagyl. His acute kidney injury resolved with IV fluids. Renal ultrasound showed [id number] right hydronephrosis. His diarrhea had resolved. And also had hematuria so Urology was consulted. They recommended CT scan of the abdomen which showed cystitis and bilateral pyelitis and mild bilateral distal hydroureter. No interventions recommended for Urology. He also had AFib with RVR which is new onset. Cardiology was consulted. Patient was initially started on amiodarone drip which was later on switched on to oral amiodarone. Patient converted back to sinus rhythm and was started on metoprolol succinate. He was on midodrine for a few days for low blood pressure. Midodrine has been stopped and his blood pressure has remained stable. Patient is clinically stable at this time and is being discharged home. Time Spent with Patient Time attestation: Total time spent providing and/or coordinating discharge services: Exam Const: General: cooperative, healthy appearing, comfortable and no acute distress; No confusion Orientation/consciousness: oriented to person, patient oriented x3 and No confusion Other: Laughing and seems to be in good spirits HENMT: Mouth: Yes moist mucous membranes Eyes: Sclera: sclerae normal Pupils: Equal, round and reactive pupils present Neck: Neck: supple and no JVD Other: Normal carotid upstrokes, no bruits Resp: Effort & Inspection: normal respiratory effort Auscultation: clear to auscultation bilaterally Cardio: Rate: regular rate Rhythm: regular rhythm Heart sounds: no murmurs GI: Inspection: normal to inspection Auscultation: normal bowel sounds Skin: General skin exam: normal color and no rashes or lesions noted Neuro: General: oriented to person, patient oriented x3 and No confusion Cranial nerves: Yes Equal, round and reactive pupils present Other: Alert and oriented x3 Extrem: Right lower extremity: no edema Left lower extremity: no edema Other: No edema, good distal pulse Psych: Appearance: grossly normal Mental Status: mental status grossly normal DS: Data Data Completed and Pending Labs on day of
[2022-06-24 18:04] LABS: SM Antibody <1.0; SM/RNP Antibody <1.0
[2022-06-26 21:29] LABS: Complement Total CH50 57 U/mL (31-60)
[2022-06-29 15:08] LABS: Abnormal Protein Band 1 98 mg/dL; Total Protein/Creatinine Ratio 5108 mg/g creat (25-148)
[2022-06-30 13:35] LABS: Strep DNASE B Antibody <95 U/mL (<301)
== END 2022-06-24 14:01 | disposition home or self-care (01) | DRG 872 ==
LOC: ANHED 09:11 → ANHIMU 11:41 → ANHICU 13:02 → ANHIMU 06-21 17:11
PROVIDERS: Internal Medicine; Nurse Practitioner; Admitting Provider Internal Medicine; Emergency Provider Emergency Medicine; PCP Internal Medicine; Visit Provider Hospitalist
DX: R57.1 Hypovolemic shock (principal); E87.20 Acidosis, unspecified; N17.9 Acute kidney failure, unspecified; N13.6 Pyonephrosis; N30.91 Cystitis, unspecified with hematuria; R31.0 Gross hematuria; B96.20 Unspecified Escherichia coli [E. coli] as the cause of diseases classified elsewhere; R19.7 Diarrhea, unspecified; D64.9 Anemia, unspecified; E86.0 Dehydration; E78.5 Hyperlipidemia, unspecified; H40.9 Unspecified glaucoma; H54.7 Unspecified visual loss; I10 Essential (primary) hypertension; I48.0 Paroxysmal atrial fibrillation; Z66 Do not resuscitate; Z20.822 Contact with and (suspected) exposure to COVID-19; Z28.21 Immunization not carried out because of patient refusal; Z87.891 Personal history of nicotine dependence; Z91.81 History of falling; Z90.49 Acquired absence of other specified parts of digestive tract
CPT/HCPCS: 36415; 36556; 36600; 51701; 71045; 74176; 76775; 80048; 80053; 80202; 81001; 82274; 82436; 82550; 82565; 82570; 82595; 83520; 83605; 83735; 83930; 83935; 84100; 84133; 84156; 84166; 84300; 84443; 85014; 85018; 85025; 85027; 85610; 85730; 85999; 86036; 86038; 86140; 86160; 86162; 86215; 86225; 86235; 86334; 86703; 86705; 86706; 86803; 87040; 87077; 87086; 87186; 87340; 87493; 87636; 93005; 93306; 96360; 97161; 97165; 99285; A9270; C1751; C9113; G0432; J0282; J0696; J1956; J2543; J3370; J3475; J3480; J7030; J7060; J7120; P9047